=== PATIENT | male | born 1990 | race Caucasian/White ===

== ENCOUNTER 2019-02-11 21:28 | Inpatient (IN) | payer MEDICAID ==
[~2019-02-11] VITALS: Ht 182.9 cm; Wt 71.7 kg
[2019-02-11 22:05] VITALS: BP 148/98
--- NOTE | 2019-02-11 22:05 | NUR ---
ED Nurse Note: Patient walked in to ER c/o severe abdominal pain, N/V/D. Per patient he was not able to eat anything since Sunday. AAO x4, VSS at this time, skin is dry, warm to touch.
--- NOTE | 2019-02-11 22:08 | Emergency Room Report ---
History of Present Illness General Chief Complaint: Abdominal Pain Source: Patient Present Illness HPI This is a 28-year-old male with history of pancreatitis. This is secondary to alcohol abuse. He still drinks at least one drink tonight. He presents with chief complaint of upper quadrant pain. Onset this morning. He said his felt like his pancreatitis. It comes in waves. At most severe it's 8 out of 10. Now 5 out of 10. Nauseous but no vomiting. No diarrhea. Denies any fever or chills. Nothing made it better. Nothing made it worse. Allergies: Coded Allergies: No Known Allergies (Unverified , 02/11/19) Patient History Past Medical History: see triage record, old chart reviewed Past Surgical History: none Pertinent Family History: none Social History: Reports: alcohol use Immunizations: other Reviewed Nursing Documentation: PMH: Agreed; PSxH: Agreed Nursing Documentation-PMH Past Medical History: No History, Except For Hx Hypertension: Yes Hx Gastrointestinal Problems: Yes - pancreatitis Review of Systems Eye: Denies: eye pain, blurred vision ENT: Denies: ear pain, nose congestion, throat swelling Respiratory: Denies: cough, shortness of breath Cardiovascular: Denies: chest pain, palpitations Gastrointestinal: Reports: abdominal pain; Denies: diarrhea, nausea, vomiting Musculoskeletal: Denies: back pain, joint pain Skin: Denies: rash Neurological: Denies: headache, numbness Endocrine: Denies: increased thirst, increased urine Hematologic/Lymphatic: Denies: easy bruising All Other Systems: negative except mentioned in HPI Physical Exam Vital Signs Date Time Temp Pulse Resp B/P (MAP) Pulse Ox O2 Delivery O2 Flow Rate FiO2 02/11/19 21:46 97.5 98 16 148/98 99 Room Air vitals with high blood pressure Sp02 EP Interpretation: reviewed, normal General Appearance: well appearing, no apparent distress, alert Head: normocephalic, atraumatic Eyes: bilateral eye PERRL, bilateral eye EOMI ENT: hearing grossly normal, normal pharynx Neck: full range of motion, supple, no meningismus Respiratory: chest non-tender, lungs clear, normal breath sounds Cardiovascular #1: regular rate, rhythm, no murmur Gastrointestinal: normal bowel sounds, no mass, no organomegaly, no bruit, non- distended, tenderness - epigastric and left upper quadrant tenderness Musculoskeletal: back normal, gait/station normal, normal range of motion Psychiatric: mood/affect normal Skin: warm/dry Medical Decision Making Diagnostic Impression: Primary Impression: Pancreatitis, alcoholic, acute Qualified Codes: K85.20 - Alcohol induced acute pancreatitis without necrosis or infection Additional Impressions: Hypokalemia UTI (urinary tract infection) Qualified Codes: N30.00 - Acute cystitis without hematuria Alcohol abuse ER Course Patient presents with acute pancreatitis. This is probably secondary to alcohol abuse. His vitals otherwise stable. Pain is better controlled. Will admit for IV fluids and pain control. I discussed the case with Dr. Velázquez who will admit. Lab Results Impression labs with elevated lipase Last Vital Signs Date Time Temp Pulse Resp B/P (MAP) Pulse Ox O2 Delivery O2 Flow Rate FiO2 02/11/19 21:46 97.5 98 16 148/98 99 Room Air Status: improved Disposition: ADMITTED INPATIENT Condition: Serious Scripts No Active Prescriptions or Reported Meds Frank Lopez MD Feb 11, 2019 22:08
[2019-02-11] MEDS ORDERED: Morphine Sulfate 4mg/ml Inj (IV USE ONLY) IVP ONE (22:15)
[2019-02-11 22:26] LABS: HEMATOCRIT 44.4 % (42.0-52.0); HEMOGLOBIN 15.2 G/DL (14.2-18.0); MEAN CORPUSCULAR VOLUME 97 FL (80-99); PLATELET COUNT 251 K/UL (150-450); RED BLOOD COUNT 4.56 M/UL (4.70-6.10); RED CELL DISTRIBUTION WIDTH 11.9 % (11.6-14.8); WHITE BLOOD COUNT 15.4 K/UL (4.8-10.8)
[2019-02-11 22:27] LABS: BASOPHILS % (AUTO) 1.1 % (0.0-2.0); EOSINOPHILS % (AUTO) 0.5 % (0.0-3.0); MONOCYTES % (AUTO) 4.2 % (1.0-10.0); NEUTROPHILS % (AUTO) 85.2 % (45.0-75.0)
[2019-02-11 22:35] LABS: ANION GAP 5 mmol/L (5-15); BLOOD UREA NITROGEN 17 mg/dL (7-18); CALCIUM 12.9 MG/DL (8.5-10.1); CARBON DIOXIDE 37 MMOL/L (21-32); CHLORIDE 99 MMOL/L (98-107); CREATININE 1.4 MG/DL (0.55-1.30); POTASSIUM 3.1 MMOL/L (3.5-5.1); SODIUM 141 MMOL/L (136-145)
[2019-02-11 22:41] LABS: ALANINE AMINOTRANSFERASE 29 U/L (12-78); ALBUMIN 3.7 G/DL (3.4-5.0); ALBUMIN/GLOBULIN RATIO 1.1 (1.0-2.7); ALKALINE PHOSPHATASE 75 U/L (46-116); ASPARTATE AMINO TRANSFERASE 21 U/L (15-37); BILIRUBIN,TOTAL 0.6 MG/DL (0.2-1.0)
[2019-02-11 23:04] LABS: APPEARANCE,URINE CLEAR; BILIRUBIN, URINE NEGATIVE (NEGATIVE); COLOR,URINE PALE YELLOW; GLUCOSE, URINE (UA) NEGATIVE (NEGATIVE); KETONES,URINE NEGATIVE (NEGATIVE); LEUKOCYTE ESTERASE ,URINE 2+ (NEGATIVE); NITRITE,URINE NEGATIVE (NEGATIVE); PH,URINE 8 (4.5-8.0); PROTEIN,URINE 1+ (NEGATIVE); UROBILINOGEN,URINE NORMAL MG/DL (0.0-1.0)
[2019-02-11] MEDS ORDERED: HYDROmorphone 1mg/ml Carpuject IVP ONE (23:30)
[2019-02-11] MEDS ORDERED: cefTRIAXone 1 GM in NS 55 ML IVPB ONE (23:30)
[2019-02-11] MEDS ORDERED: Morphine Sulfate 4mg/ml Inj (IV USE ONLY) IVP PRN (23:45)
[2019-02-12] MEDS ORDERED: Acetaminophen 500mg (ES) tab ORAL PRN (00:30)
[2019-02-12 00:45] VITALS: BP 153/111
[2019-02-12] MEDS: Morphine Sulfate 2mg/ml Inj(IV/IM USE ONLY) IVP PRN ×8 (02:05→23:58)
--- NOTE | 2019-02-12 02:36 | NUR ---
ED Nurse Note: Patient was admited to [facility] due to pancreastitis. AAO x4, VSS at this time. All belongings were given to the patient. Patient was transfered by ACLS protocol.
[2019-02-12 03:55] VITALS: BP 160/116
[2019-02-12 07:07] LABS: BASOPHILS % (AUTO) 0.5 % (0.0-2.0); EOSINOPHILS % (AUTO) 1.7 % (0.0-3.0); HEMATOCRIT 43.6 % (42.0-52.0); HEMOGLOBIN 15.1 G/DL (14.2-18.0); MEAN CORPUSCULAR VOLUME 99 FL (80-99); MONOCYTES % (AUTO) 8.2 % (1.0-10.0); NEUTROPHILS % (AUTO) 80.7 % (45.0-75.0); PLATELET COUNT 238 K/UL (150-450); RED BLOOD COUNT 4.39 M/UL (4.70-6.10); RED CELL DISTRIBUTION WIDTH 12.3 % (11.6-14.8); WHITE BLOOD COUNT 14.5 K/UL (4.8-10.8)
--- NOTE | 2019-02-12 07:13 | NUR ---
HAND-OFF: Report given to Graham Shetty RN.
--- NOTE | 2019-02-12 07:15 | NUR ---
NURSE NOTES: Received patient in bed, awake, alert and oriented x4. Not in respiratory/cardiac distress noted. Patient stated that he vomited x1, no blood.Complains of mild abdominal pain. Will continue to monitor for pain. IV intact, no s/s of infiltration. Bed is on lowest position and locked. Call light within reach. On NPO except ice chips and meds. Will continue plan of care.
[2019-02-12 07:38] LABS: ALANINE AMINOTRANSFERASE 26 U/L (12-78); ALBUMIN 3.2 G/DL (3.4-5.0); ALKALINE PHOSPHATASE 68 U/L (46-116); ANION GAP 7 mmol/L (5-15); ASPARTATE AMINO TRANSFERASE 20 U/L (15-37); BILIRUBIN,TOTAL 0.7 MG/DL (0.2-1.0); BLOOD UREA NITROGEN 17 mg/dL (7-18); CARBON DIOXIDE 34 MMOL/L (21-32); CHLORIDE 101 MMOL/L (98-107); CREATININE 1.3 MG/DL (0.55-1.30); POTASSIUM 3.2 MMOL/L (3.5-5.1); SODIUM 142 MMOL/L (136-145)
[2019-02-12 07:58] LABS: PHOSPHORUS 3.6 MG/DL (2.5-4.9)
[2019-02-12 08:00] VITALS: BP 156/113
[2019-02-12 08:09] LABS: CHOLESTEROL 145 MG/DL (< 200); HDL CHOLESTEROL 72 MG/DL (40-60); TRIGLYCERIDES 102 MG/DL (30-150)
--- NOTE | 2019-02-12 10:25 | GI Initial Consult Note ---
History of Present Illness General Date patient seen: Feb 12, 2019 Time patient seen: 10:20 Reason for Hospitalization: Abdominal Pain Referring physician: SHARDA STEPHENSON Reason for Consultation: Alcoholic pancreatitis Present Illness HPI This is a 28-year-old male with history of pancreatitis. This is secondary to alcohol abuse. He still drinks at least one drink tonight. He presents with chief complaint of upper quadrant pain. Onset this morning. He said his felt like his pancreatitis. It comes in waves. At most severe it's 8 out of 10. Now 5 out of 10. Nauseous but no vomiting. No diarrhea. Denies any fever or chills. Nothing made it better. Nothing made it worse. GI consulted for alcohol. Patient seen, awake alert and oriented x4 no apparent distress with no active signs or symptoms of vomiting. She has complaint of abdominal pain and nausea. According to the patient, he drinks alcohol on a daily basis. His most recent binge he stated he had too many drinks. The patient does admit to drinking on a daily basis. He also states he has a history of alcoholic pancreatitis where he has been hospitalized at least 3 times prior for the same reason. Patient presents today with elevated lipase levels over 1999. No transaminitis noted. Triglyceride levels normal. No history of endoscopic or colonoscopy. Home Meds No Active Prescriptions or Reported Meds Med list reviewed/reconciled: Yes Allergies: Coded Allergies: No Known Allergies (Unverified , 02/11/19) Patient History History Provided By: Patient, Medical Record PMH Narrative Past Medical History: see triage record, old chart reviewed Past Surgical History: none Pertinent Family History: none Social History: Reports: alcohol use Immunizations: other Reviewed Nursing Documentation: PMH: Agreed; PSxH: Agreed Nursing Documentation-PM Past Medical History: No History, Except For Hx Hypertension: Yes Hx Gastrointestinal Problems: Yes - pancreatitis Social History: Reports: alcohol use Review of Systems All Other Systems: negative except mentioned in HPI Physical Exam Vital Signs Date Time Temp Pulse Resp B/P (MAP) Pulse Ox O2 Delivery O2 Flow Rate FiO2 02/11/19 21:46 97.5 98 16 148/98 99 Room Air Sp02 EP Interpretation: reviewed, normal Labs Laboratory Tests Test 02/11/19 22:15 02/11/19 22:30 02/12/19 06:32 White Blood Count 15.4 K/UL (4.8-10.8) H 14.5 K/UL (4.8-10.8) H Red Blood Count 4.56 M/UL (4.70-6.10) L 4.39 M/UL (4.70-6.10) L Hemoglobin 15.2 G/DL (14.2-18.0) 15.1 G/DL (14.2-18.0) Hematocrit 44.4 % (42.0-52.0) 43.6 % (42.0-52.0) Mean Corpuscular Volume 97 FL (80-99) 99 FL (80-99) Mean Corpuscular Hemoglobin 33.4 PG (27.0-31.0) H 34.4 PG (27.0-31.0) H Mean Corpuscular Hemoglobin Concent 34.3 G/DL (32.0-36.0) 34.6 G/DL (32.0-36.0) Red Cell Distribution Width 11.9 % (11.6-14.8) 12.3 % (11.6-14.8) Platelet Count 251 K/UL (150-450) 238 K/UL (150-450) Mean Platelet Volume 5.8 FL (6.5-10.1) L 7.0 FL (6.5-10.1) Neutrophils (%) (Auto) 85.2 % (45.0-75.0) H 80.7 % (45.0-75.0) H Lymphocytes (%) (Auto) 9.0 % (20.0-45.0) L 9.0 % (20.0-45.0) L Monocytes (%) (Auto) 4.2 % (1.0-10.0) 8.2 % (1.0-10.0) Eosinophils (%) (Auto) 0.5 % (0.0-3.0) 1.7 % (0.0-3.0) Basophils (%) (Auto) 1.1 % (0.0-2.0) 0.5 % (0.0-2.0) Sodium Level 141 MMOL/L (136-145) 142 MMOL/L (136-145) Potassium Level 3.1 MMOL/L (3.5-5.1) L 3.2 MMOL/L (3.5-5.1) L Chloride Level 99 MMOL/L (98-107) 101 MMOL/L (98-107) Carbon Dioxide Level 37 MMOL/L (21-32) H 34 MMOL/L (21-32) H Anion Gap 5 mmol/L (5-15) 7 mmol/L (5-15) Blood Urea Nitrogen 17 mg/dL (7-18) 17 mg/dL (7-18) Creatinine 1.4 MG/DL (0.55-1.30) H 1.3 MG/DL (0.55-1.30) Estimat Glomerular Filtration Rate 59.5 mL/min (>60) > 60 mL/min (>60) Glucose Level 102 MG/DL (74-106) 94 MG/DL (74-106) Calcium Level 12.9 MG/DL (8.5-10.1) H 11.0 MG/DL (8.5-10.1) H Total Bilirubin 0.6 MG/DL (0.2-1.0) 0.7 MG/DL (0.2-1.0) Aspartate Amino Transf (AST/SGOT) 21 U/L (15-37) 20 U/L (15-37) Alanine Aminotransferase (ALT/SGPT) 29 U/L (12-78) 26 U/L (12-78) Alkaline Phosphatase 75 U/L (46-116) 68 U/L (46-116) Total Protein 7.2 G/DL (6.4-8.2) 6.4 G/DL (6.4-8.2) Albumin 3.7 G/DL (3.4-5.0) 3.2 G/DL (3.4-5.0) L Globulin 3.5 g/dL 3.2 g/dL Albumin/Globulin Ratio 1.1 (1.0-2.7) 1.0 (1.0-2.7) Lipase > 2000 U/L (73-393) H > 2000 U/L (73-393) H Urine Color Pale yellow Urine Appearance Clear Urine pH 8 (4.5-8.0) Urine Specific [place] 1.010 (1.005-1.035) Urine Protein 1+ (NEGATIVE) H Urine Glucose (UA) Negative (NEGATIVE) Urine Ketones Negative (NEGATIVE) Urine Blood Negative (NEGATIVE) Urine Nitrite Negative (NEGATIVE) Urine Bilirubin Negative (NEGATIVE) Urine Urobilinogen Normal MG/DL (0.0-1.0) Urine Leukocyte Esterase 2+ (NEGATIVE) H Urine RBC 2-4 /HPF (0 - 0) H Urine WBC 10-15 /HPF (0 - 0) H Urine Squamous Epithelial Cells Occasional /LPF Urine Bacteria Few /HPF (NONE) Uric Acid 7.9 MG/DL (2.6-7.2) H Phosphorus Level 3.6 MG/DL (2.5-4.9) Magnesium Level 1.2 MG/DL (1.8-2.4) L Triglycerides Level 102 MG/DL (30-150) Cholesterol Level 145 MG/DL (< 200) LDL Cholesterol 53 mg/dL (<100) HDL Cholesterol 72 MG/DL (40-60) H Cholesterol/HDL Ratio 2.0 (3.3-4.4) L Thyroid Stimulating Hormone (TSH) 1.437 uiU/mL (0.358-3.740) General Appearance: well appearing, no apparent distress, alert Head: normocephalic EENT: PERRL/EOMI, normal ENT inspection Neck: supple Respiratory: normal breath sounds, no respiratory distress Cardiovascular: normal rate Gastrointestinal: normal inspection, non tender, soft, normal bowel sounds, non -distended Rectal: deferred Genitourinary: deferred Musculoskeletal: normal inspection, back normal Neurologic: normal inspection, alert, oriented x3, responsive Psychiatric: normal inspection, judgement/insight normal, memory normal Skin: normal inspection, normal color, no rash, warm/dry, palpation normal, well hydrated Lymphatic: normal inspection, no adenopathy Current Medications Current Medications Medications (Trade) Dose Ordered Sig/Anurag Route PRN Reason Start Time Stop Time Status Last Admin Dose Admin Acetaminophen (Tylenol) 500 mg Q6HR PRN ORAL Mild Pain/Temp > 100.5 02/12/19 00:30 03/14/19 00:29 Clonidine HCl (Catapres Tab) 0.1 mg Q6H PRN ORAL For High Blood Pressure 02/12/19 06:45 03/14/19 06:44 Morphine Sulfate (Morphine Sulfate) 2 mg Q2HR PRN IVP For Pain 4-10 02/12/19 00:30 02/19/19 00:29 02/12/19 07:52 Ondansetron HCl (Zofran) 4 mg Q6H PRN IVP Nausea & Vomiting 02/12/19 00:30 03/14/19 00:29 02/12/19 04:20 Sodium Chloride 1,000 ml @ 75 mls/hr [id number] IV 02/12/19 00:30 03/14/19 00:29 02/12/19 01:19 GI: Plan Problems: (1) Alcohol abuse (2) Pancreatitis, alcoholic, acute Plan Triglyceride level of within normal limits Maintain the patient n.p.o. plus IV fluids ice chips and sips of water okay, advance diet as tolerated Pain management Zofran as needed H2B Obtain urine toxicity Repeat lipase levels Patient instructed to avoid alcohol Discussed with Dr. Clark. Thank you for this patient referral, we will follow. The patient was seen and examined at bedside and all new and available data was reviewed in the patients chart. I agree with the above findings, impression and plan. (Patient seen earlier today. Signature stamp does not reflect patient encounter time.). - MD Jessica [facility] TOOL ENGINE LATHE SET UP OPERATOR Feb 12, 2019 10:25
[2019-02-12 12:00] VITALS: BP 164/113
--- NOTE | 2019-02-12 12:25 | NUR ---
NURSE NOTES: Collected urine specimen and sent it to lab for drug screen.
[2019-02-12] MEDS: Thiamine HCl 100 MG in D5W 55 ML IVPB SCH (13:09)
[2019-02-12] MEDS: D5 1/2NS w/KCl 40meq 1000ml 1,000 ML IV SCH (13:11)
--- NOTE | 2019-02-12 13:46 | Consultation ---
Consult Note Consult Note asked to eval at the request of Dr coleman for fluid management This is a 28-year-old male with history of pancreatitis. This is secondary to alcohol abuse. He still drinks at least one drink tonight. He presents with chief complaint of upper quadrant pain. Onset this morning. He said his felt like his pancreatitis. It comes in waves. At most severe it's 8 out of 10. Now 5 out of 10. Nauseous but no vomiting. No diarrhea. Denies any fever or chills. Nothing made it better. Nothing made it worse. No Known Allergies (Unverified , 02/11/19) Social History: Reports: alcohol use Hx Hypertension: Yes Hx Gastrointestinal Problems: Yes - pancreatitis interviewed examined data reviewed . Assessment/Plan Hypokalemia HTN OOC Pancreatitis, alcoholic, acute UTI (urinary tract infection) Alcohol abuse NPO BP control Hydrate minitor lipase and lytes per orders Javi Lyles MD Feb 12, 2019 13:46
[2019-02-12] MEDS ORDERED: chlordiazePOXIDE 25mg Cap ORAL PRN (14:00)
[2019-02-12] MEDS ORDERED: chlordiazePOXIDE 25mg Cap ORAL SCH (14:00)
[2019-02-12] MEDS ORDERED: Minoxidil 2.5mg tab ORAL PRN (14:00)
--- NOTE | 2019-02-12 14:03 | NUR ---
*-* INSURANCE *-* CLINICALS HAVE BEEN FAXED TO: [facility] NO WORSTED WINDER ASSIGNED AT THIS TIME. PLEASE FAX THE REVIEW/CLINICAL P- [phone] F- [phone]...REVIEW/CLINICAL
[2019-02-12 16:00] VITALS: BP 157/116
--- NOTE | 2019-02-12 16:22 | NUR ---
NURSE NOTES: Administered 4 bags of magnesium.
[2019-02-12] MEDS ORDERED: Tubing IV Secondary IV ONE (17:23)
--- NOTE | 2019-02-12 19:30 | NUR ---
NURSE NOTES: Patient in bed, alert and oriented x4, not in respiratory distress. With IV access on the right hand. Instructed the use of call light. Call light and needs in reach. Bed in lowest position and lock engaged. Will continue to monitor.
--- NOTE | 2019-02-12 19:38 | NUR ---
HAND-OFF: Report given to
--- NOTE | 2019-02-12 19:47 | NUR ---
CASE MANAGEMENT: REVIEW PRESENTED TO ED FROM HOME CC: N/V . UPPER ABD PAIN . HX PANCREATITIS SECONDARY TO ALCOHOL ABUSE SI: ACUTE ALCOHOLIC PANCREATITIS . UTI T 97.0 HR 78 RR 16 BP 157/116 SAT 97% ROOM AIR WBC 14.5 K 3.1 LIPASE >2000 IS: NS IVF BOLUS X1 MORPHINE IV X1 ZOFRAN IV X1 CEFTRIAXONE IV X1 DILAUDID IV X1 NPO PATIENT ADMITTED TO MED/SURG UNIT 02/12/2019 DCP: PATIENT IS FROM HOME
[2019-02-12 20:00] VITALS: BP 145/105
[2019-02-12] MEDS: Pantoprazole Inj IVP SCH (21:00)
--- NOTE | 2019-02-12 21:45 | Consultation ---
DATE OF CONSULTATION: 02/12/2019 INFECTIOUS DISEASE CONSULTATION CONSULTING PHYSICIAN: Santhosh Strickland M.D. PRIMARY ATTENDING PHYSICIAN: Natalie Velázquez M.D. REASON FOR CONSULT: Pancreatitis. HISTORY OF PRESENT ILLNESS: This is a 28-year-old white male admitted last night complaining of upper quadrant abdominal pain started on the day of admission, 05/31. The patient had a history of pancreatitis before in October of 2018. He was admitted in the hospital in [place]. The patient also has some pyuria. PAST MEDICAL HISTORY: Significant for hypertension and pancreatitis. MEDICATIONS: Folic acid, amlodipine, lisinopril, Protonix, Librium, clonidine, minoxidil, thiamine, morphine sulfate, acetaminophen, and Zofran. He also get a dose of ceftriaxone in the ER. ALLERGIES: No known drug allergy. SOCIAL HISTORY: Single. Current smoker up to 20 cigarettes a day. Drinks alcohol every night. REVIEW OF SYSTEMS: No fever. No chills. No coughing. No diarrhea. No bowel movements since yesterday. No problem passing urine. PHYSICAL EXAMINATION: VITAL SIGNS: Temperature 97, pulse 67, and blood pressure 163/108. GENERAL APPEARANCE: Seems to be well developed. HEAD AND NECK: Jaars conjunctivae. No oral lesions. HEART: S1 and S2 regular. LUNGS: Clear. ABDOMEN: Soft. Have upper quadrant tenderness. Flat. EXTREMITIES: He has no edema. LABORATORY AND DIAGNOSTIC DATA: Sodium 142, potassium 3.2, chloride 101, bicarb 34, BUN 17, and creatinine 1.3. Total bilirubin 0.7. AST and ALT are normal. His lipase is more than 2000. HDL cholesterol is high at 72. Urine toxicology was positive for opiates and THC. IMPRESSION: Acute pancreatitis, likely alcoholic. The patient has hypertension and nicotine dependence. RECOMMENDATION: 1. Observe off antibiotic. 2. Continue hydration and treatment of hypertension as suggested by GI specialists and coil placer in follow up. At the end of my exam, I thank Dr. Velázquez for involving me in the care of this patient. Santhosh Strickland M.D. DR: NADJA JOB#: [id number] CC:
[2019-02-13] VITALS: BP 136/95
[2019-02-13] MEDS: D5 1/2NS w/KCl 40meq 1000ml 1,000 ML IV SCH ×2 (02:55→14:40)
[2019-02-13] MEDS: Morphine Sulfate 2mg/ml Inj(IV/IM USE ONLY) IVP PRN ×6 (02:56→20:14)
--- NOTE | 2019-02-13 04:30 | History and Physical Report ---
DATE OF ADMISSION: 02/11/2019 HISTORY OF PRESENT ILLNESS: The patient comes here with alcoholic pancreatitis, leukocytosis, and elevated lipase. The patient is kept NPO. The patient has been having . He has a history of alcoholic pancreatitis. Denies nausea, vomiting, or diarrhea. No shortness of breath or cough. No fever or chills. PAST MEDICAL HISTORY: 1. History of alcohol-related pancreatitis. 2. GERD. PAST SURGICAL HISTORY: Throat surgery. SOCIAL HISTORY: History of smoking, history of drug abuse, history of alcohol abuse. ALLERGIES: No known allergies. MEDICATIONS: Noncontributory. REVIEW OF SYSTEMS: HEENT: Denies headaches. RESPIRATORY: Denies shortness of breath. Denies cough. CARDIOVASCULAR: Denies chest pain. No orthopnea. GASTROINTESTINAL: Reports abdominal pain, nausea, and vomiting for one day. No constipation. No hematemesis. EXTREMITIES: . CENTRAL NERVOUS SYSTEM: No change in vision or speech pattern. PHYSICAL EXAMINATION: VITAL SIGNS: Temperature 97, pulse 67, blood pressure 164/113. HEENT: PERRLA. NECK: Supple. No lymphadenopathy. CHEST: Clear to auscultation. CARDIOVASCULAR: Regular rate and rhythm. No murmurs or extra sounds. ABDOMEN: Epigastric tenderness. No rebound. No organomegaly. Positive bowel sounds. Abdomen is soft. EXTREMITIES: No edema. Moves all four extremities. LABORATORY DATA: WBC of 15.4, hemoglobin 15, and platelets of 251,000. Sodium 141, potassium 3.1, BUN of 17, creatinine 1.4, lipase of greater than 2000. ASSESSMENT AND PLAN: Alcoholic pancreatitis acute. Today the patient is NPO. Intravenous fluids to help with treating the pancreatitis. Dr. Clark has also been consulted as well as Dr. Santhosh Strickland to rule out any infectious etiology and Dr. Lyles for dehydration. Dr. Lyles has also been consulted for severe hypercalcemia. Natalie Velázquez M.D. DR: NAOMIE JOB#: [id number] CC:
[2019-02-13 05:56] VITALS: BP 129/93
--- NOTE | 2019-02-13 07:23 | NUR ---
HAND-OFF: Report given to GALLITO Parekh.
[2019-02-13 07:26] LABS: BASOPHILS % (AUTO) 0.7 % (0.0-2.0); HEMATOCRIT 39.2 % (42.0-52.0); HEMOGLOBIN 13.6 G/DL (14.2-18.0); LYMPHOCYTES % (AUTO) 15.3 % (20.0-45.0); MEAN CORPUSCULAR VOLUME 99 FL (80-99); MONOCYTES % (AUTO) 10.5 % (1.0-10.0); NEUTROPHILS % (AUTO) 67.5 % (45.0-75.0); PLATELET COUNT 221 K/UL (150-450); RED BLOOD COUNT 3.97 M/UL (4.70-6.10); RED CELL DISTRIBUTION WIDTH 12.2 % (11.6-14.8); WHITE BLOOD COUNT 10.6 K/UL (4.8-10.8)
[2019-02-13 07:39] LABS: ALANINE AMINOTRANSFERASE 23 U/L (12-78); ALBUMIN 2.9 G/DL (3.4-5.0); ALBUMIN/GLOBULIN RATIO 0.9 (1.0-2.7); ALKALINE PHOSPHATASE 58 U/L (46-116); ANION GAP 6 mmol/L (5-15); ASPARTATE AMINO TRANSFERASE 18 U/L (15-37); BILIRUBIN,TOTAL 0.5 MG/DL (0.2-1.0); BLOOD UREA NITROGEN 11 mg/dL (7-18); CALCIUM 9.5 MG/DL (8.5-10.1); CARBON DIOXIDE 31 MMOL/L (21-32); CHLORIDE 101 MMOL/L (98-107); POTASSIUM 3.1 MMOL/L (3.5-5.1); SODIUM 138 MMOL/L (136-145)
[2019-02-13 08:23] LABS: CREATINE KINASE 35 U/L (26-308); GAMMA GLUTAMYL TRANSPEPTIDASE 47 U/L (5-85); PHOSPHORUS 2.6 MG/DL (2.5-4.9)
[2019-02-13 08:30] VITALS: BP 132/89
[2019-02-13] MEDS: Pantoprazole Inj IVP SCH ×2 (08:35→21:54)
[2019-02-13] MEDS: Lisinopril 20mg tab ORAL SCH (08:36)
--- NOTE | 2019-02-13 08:45 | NUR ---
NURSE NOTES: patient is awake and alert,respirations are unlablred,IV fluids infusing as ordered,patient state pain not too bad ,but requesting pain mediication,will give as ordered.Call light within reach.
--- NOTE | 2019-02-13 09:49 | NUR ---
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 UTI VS: BP 129/93, P 71, T 97.0, RR 19, SpO2 98 RBC 3.97, Hgb 13.6, Hct 39.2, K 3.1 IS:NORVASC 10mg LISINOPRIL 20mg PROTONIX 40mg IVP CLONIDINE HCI 0.1mg D5/ ELECTROLYTES x1L IV MORPHINE SULFATE 2mg IVP ZOFRAN 4mg IVP MED/SURG STATUS
--- NOTE | 2019-02-13 10:21 | NUR ---
*-* INSURANCE *-* CLINICALS AND REVIEWS HAVE BEEN FAXED TO: [facility] NO DJ INSTRUCTOR ASSIGNED AT THIS TIME. PLEASE FAX THE REVIEW/CLINICAL P- [phone] F- [phone]...REVIEW/CLINICAL
--- NOTE | 2019-02-13 10:46 | GI Progress Note ---
Assessment/Plan Problems: (1) Pancreatitis, alcoholic, acute ICD Codes: K85.20 - Alcohol induced acute pancreatitis without necrosis or infection SNOMED: 277578458 Qualifiers: Qualified Codes: K85.20 - Alcohol induced acute pancreatitis without necrosis or infection (2) Alcohol abuse ICD Codes: F10.10 - Alcohol abuse, uncomplicated SNOMED: 78879355 Status: unchanged Status Narrative Discussed with Dr. Clark Assessment/Plan Triglyceride level of within normal limits Urine toxicity positive for marijuana Clear liquid diet trial Pain management Zofran as needed H2B Repeat lipase levels Patient instructed to avoid alcohol The patient was seen and examined at bedside and all new and available data was reviewed in the patients chart. I agree with the above findings, impression and plan. (Patient seen earlier today. Signature stamp does not reflect patient encounter time.). - Nakul Clark MD Subjective Subjective Patient is complaining of abdominal pain. Patient wishes to have a trial of clear liquid diet Objective Last 24 Hour Vital Signs Date Time Temp Pulse Resp B/P (MAP) Pulse Ox O2 Delivery O2 Flow Rate FiO2 02/13/19 08:36 132/89 02/13/19 08:35 71 132/89 02/13/19 08:30 98.0 71 18 132/89 (103) 98 02/13/19 06:00 129/93 02/13/19 05:56 97.0 62 19 129/93 (105) 98 02/13/19 00:00 98.1 74 18 136/95 (109) 97 02/12/19 22:47 136/95 02/12/19 21:00 Room Air 02/12/19 20:00 98.1 72 18 145/105 (118) 98 02/12/19 16:00 97.0 78 16 157/116 (130) 97 02/12/19 15:22 157/116 02/12/19 15:21 78 157/116 02/12/19 13:12 160/108 02/12/19 12:00 97.0 67 17 164/113 (130) 97 Intake and Output 02/12/19 02/13/19 19:00 07:00 Intake Total 831 ml 790 ml Balance 831 ml 790 ml IV Total 831 ml 790 ml # Voids 2 Laboratory Tests Test 02/12/19 12:00 02/13/19 06:23 Urine Opiates Screen Positive (NEGATIVE) H Urine Barbiturates Screen Negative (NEGATIVE) Phencyclidine (PCP) Screen Negative (NEGATIVE) Urine Amphetamines Screen Negative (NEGATIVE) Urine Benzodiazepines Screen Negative (NEGATIVE) Urine Cocaine Screen Negative (NEGATIVE) Urine Marijuana (THC) Screen Positive (NEGATIVE) H White Blood Count 10.6 K/UL (4.8-10.8) Red Blood Count 3.97 M/UL (4.70-6.10) L Hemoglobin 13.6 G/DL (14.2-18.0) L Hematocrit 39.2 % (42.0-52.0) L Mean Corpuscular Volume 99 FL (80-99) Mean Corpuscular Hemoglobin 34.3 PG (27.0-31.0) H Mean Corpuscular Hemoglobin Concent 34.7 G/DL (32.0-36.0) Red Cell Distribution Width 12.2 % (11.6-14.8) Platelet Count 221 K/UL (150-450) Mean Platelet Volume 7.2 FL (6.5-10.1) Neutrophils (%) (Auto) 67.5 % (45.0-75.0) Lymphocytes (%) (Auto) 15.3 % (20.0-45.0) L Monocytes (%) (Auto) 10.5 % (1.0-10.0) H Eosinophils (%) (Auto) 6.0 % (0.0-3.0) H Basophils (%) (Auto) 0.7 % (0.0-2.0) Sodium Level 138 MMOL/L (136-145) Potassium Level 3.1 MMOL/L (3.5-5.1) L Chloride Level 101 MMOL/L (98-107) Carbon Dioxide Level 31 MMOL/L (21-32) Anion Gap 6 mmol/L (5-15) Blood Urea Nitrogen 11 mg/dL (7-18) Creatinine 1.0 MG/DL (0.55-1.30) Estimat Glomerular Filtration Rate > 60 mL/min (>60) Glucose Level 90 MG/DL (74-106) Hemoglobin A1c 5.2 % (4.3-6.0) Uric Acid 7.2 MG/DL (2.6-7.2) Calcium Level 9.5 MG/DL (8.5-10.1) Phosphorus Level 2.6 MG/DL (2.5-4.9) Magnesium Level 1.8 MG/DL (1.8-2.4) Total Bilirubin 0.5 MG/DL (0.2-1.0) Gamma Glutamyl Transpeptidase 47 U/L (5-85) Aspartate Amino Transf (AST/SGOT) 18 U/L (15-37) Alanine Aminotransferase (ALT/SGPT) 23 U/L (12-78) Alkaline Phosphatase 58 U/L (46-116) Total Creatine Kinase 35 U/L (26-308) C-Reactive Protein, Quantitative 8.9 mg/dL (0.00-0.90) H Pro-B-Type Natriuretic Peptide 574 pg/mL (0-125) H Total Protein 6.0 G/DL (6.4-8.2) L Albumin 2.9 G/DL (3.4-5.0) L Globulin 3.1 g/dL Albumin/Globulin Ratio 0.9 (1.0-2.7) L Lipase > 2000 U/L (73-393) H Vitamin B12 Level 739 PG/ML (193-986) Folate 15.4 NG/ML (8.6-58.9) Height (Feet): 6 Height (Inches): 0.00 Weight (Pounds): 158 General Appearance: WD/WN, no apparent distress, alert Cardiovascular: normal rate Respiratory/Chest: normal breath sounds, no respiratory distress Abdominal Exam: normal bowel sounds, non tender, soft Extremities: normal range of motion, non-tender Jan Lopez NP Feb 13, 2019 10:46
--- NOTE | 2019-02-13 13:40 | Infectious Diseases Prog Note ---
Assessment/Plan Assessment/Plan IMPRESSION: Acute pancreatitis, likely alcoholic. hypertension nicotine dependence. RECOMMENDATION: 1. Observe off antibiotic. Subjective ROS Limited/Unobtainable: Yes Constitutional: Reports: anorexia Gastrointestinal/Abdominal: Reports: other - abdominal pain Allergies: Coded Allergies: No Known Allergies (Unverified , 02/11/19) Objective Vital Signs Last 24 Hour Vital Signs Date Time Temp Pulse Resp B/P (MAP) Pulse Ox O2 Delivery O2 Flow Rate FiO2 02/13/19 09:00 Room Air 02/13/19 08:36 132/89 02/13/19 08:35 71 132/89 02/13/19 08:30 98.0 71 18 132/89 (103) 98 02/13/19 06:00 129/93 02/13/19 05:56 97.0 62 19 129/93 (105) 98 02/13/19 00:00 98.1 74 18 136/95 (109) 97 02/12/19 22:47 136/95 02/12/19 21:00 Room Air 02/12/19 20:00 98.1 72 18 145/105 (118) 98 02/12/19 16:00 97.0 78 16 157/116 (130) 97 02/12/19 15:22 157/116 02/12/19 15:21 78 157/116 Height (Feet): 6 Height (Inches): 0.00 Weight (Pounds): 158 General Appearance: no acute distress HEENT: mucous membranes moist Respiratory/Chest: lungs clear Cardiovascular: normal rate Abdomen: other - soft, tender Extremities: no edema Neurologic/Psychiatric: other - sleeping Microbiology Date/Time Source Procedure Growth Status 02/11/19 22:30 Urine,Clean Catch Urine Culture - Preliminary NO GROWTH AFTER 24 HOURS Resulted Laboratory Tests Test 02/13/19 06:23 White Blood Count 10.6 K/UL (4.8-10.8) Red Blood Count 3.97 M/UL (4.70-6.10) L Hemoglobin 13.6 G/DL (14.2-18.0) L Hematocrit 39.2 % (42.0-52.0) L Mean Corpuscular Volume 99 FL (80-99) Mean Corpuscular Hemoglobin 34.3 PG (27.0-31.0) H Mean Corpuscular Hemoglobin Concent 34.7 G/DL (32.0-36.0) Red Cell Distribution Width 12.2 % (11.6-14.8) Platelet Count 221 K/UL (150-450) Mean Platelet Volume 7.2 FL (6.5-10.1) Neutrophils (%) (Auto) 67.5 % (45.0-75.0) Lymphocytes (%) (Auto) 15.3 % (20.0-45.0) L Monocytes (%) (Auto) 10.5 % (1.0-10.0) H Eosinophils (%) (Auto) 6.0 % (0.0-3.0) H Basophils (%) (Auto) 0.7 % (0.0-2.0) Sodium Level 138 MMOL/L (136-145) Potassium Level 3.1 MMOL/L (3.5-5.1) L Chloride Level 101 MMOL/L (98-107) Carbon Dioxide Level 31 MMOL/L (21-32) Anion Gap 6 mmol/L (5-15) Blood Urea Nitrogen 11 mg/dL (7-18) Creatinine 1.0 MG/DL (0.55-1.30) Estimat Glomerular Filtration Rate > 60 mL/min (>60) Glucose Level 90 MG/DL (74-106) Hemoglobin A1c 5.2 % (4.3-6.0) Uric Acid 7.2 MG/DL (2.6-7.2) Calcium Level 9.5 MG/DL (8.5-10.1) Phosphorus Level 2.6 MG/DL (2.5-4.9) Magnesium Level 1.8 MG/DL (1.8-2.4) Total Bilirubin 0.5 MG/DL (0.2-1.0) Gamma Glutamyl Transpeptidase 47 U/L (5-85) Aspartate Amino Transf (AST/SGOT) 18 U/L (15-37) Alanine Aminotransferase (ALT/SGPT) 23 U/L (12-78) Alkaline Phosphatase 58 U/L (46-116) Total Creatine Kinase 35 U/L (26-308) C-Reactive Protein, Quantitative 8.9 mg/dL (0.00-0.90) H Pro-B-Type Natriuretic Peptide 574 pg/mL (0-125) H Total Protein 6.0 G/DL (6.4-8.2) L Albumin 2.9 G/DL (3.4-5.0) L Globulin 3.1 g/dL Albumin/Globulin Ratio 0.9 (1.0-2.7) L Lipase > 2000 U/L (73-393) H Vitamin B12 Level 739 PG/ML (193-986) Folate 15.4 NG/ML (8.6-58.9) Current Medications Medications (Trade) Dose Ordered Sig/Anurag Route PRN Reason Start Time Stop Time Status Last Admin Dose Admin Acetaminophen (Tylenol) 500 mg Q6HR PRN ORAL Mild Pain/Temp > 100.5 02/12/19 00:30 03/14/19 00:29 Amlodipine Besylate (Norvasc) 10 mg DAILY ORAL 02/13/19 09:00 03/15/19 08:59 02/13/19 08:35 Chlordiazepoxide (Librium) 25 mg Q6H PRN ORAL Agitation 02/12/19 14:00 02/19/19 13:59 Clonidine HCl (Catapres Tab) 0.1 mg EVERY 8 HOURS ORAL 02/12/19 14:00 03/14/19 11:59 02/12/19 22:47 Dextrose/ Electrolytes 1,000 ml @ 75 mls/hr [id number] IV 02/12/19 12:00 03/14/19 11:59 02/13/19 02:55 Folic Acid (Folate) 1 mg DAILY ORAL 02/13/19 09:00 03/15/19 08:59 02/13/19 08:35 Lisinopril (Prinivil) 20 mg DAILY ORAL 02/13/19 09:00 03/15/19 08:59 02/13/19 08:36 Minoxidil (Loniten) 2.5 mg Q4H PRN ORAL bp over 160 syst 02/12/19 14:00 03/14/19 13:59 Morphine Sulfate (Morphine Sulfate) 2 mg Q2HR PRN IVP For Pain 4-02/12/19 00:30 02/19/19 00:29 02/13/19 12:30 Ondansetron HCl (Zofran) 4 mg Q6H PRN IVP Nausea & Vomiting 02/12/19 00:30 03/14/19 00:29 02/13/19 12:26 Pantoprazole (Protonix) 40 mg EVERY 12 HOURS IVP 02/12/19 21:00 03/14/19 20:59 02/13/19 08:35 Potassium Chloride 100 ml @ 100 mls/hr Q1H IVPB 02/13/19 11:00 02/13/19 14:59 02/13/19 12:34 Thiamine HCl 100 mg/Dextrose 56 ml @ 112 mls/hr Q24H IVPB 02/12/19 13:00 03/14/19 12:59 02/12/19 13:09 Santhosh Strickland MD Feb 13, 2019 13:40
[2019-02-13] MEDS ORDERED: traMADol 50mg tab ORAL SCH (13:51)
--- NOTE | 2019-02-13 13:53 | Nephrology Progress Note ---
Assessment/Plan Problem List: (1) Hypokalemia (2) Pancreatitis, alcoholic, acute (3) Alcohol abuse (4) Hypertension, accelerated Assessment Hypokalemia HTN OOC Pancreatitis, alcoholic, acute UTI (urinary tract infection) Alcohol abuse Plan NPO - BP control - Hydrate minitor lipase and lytes per orders Subjective ROS Limited/Unobtainable: No Constitutional: Reports: malaise Objective Objective Last 24 Hour Vital Signs Date Time Temp Pulse Resp B/P (MAP) Pulse Ox O2 Delivery O2 Flow Rate FiO2 02/13/19 09:00 Room Air 02/13/19 08:36 132/89 02/13/19 08:35 71 132/89 02/13/19 08:30 98.0 71 18 132/89 (103) 98 02/13/19 06:00 129/93 02/13/19 05:56 97.0 62 19 129/93 (105) 98 02/13/19 00:00 98.1 74 18 136/95 (109) 97 02/12/19 22:47 136/95 02/12/19 21:00 Room Air 02/12/19 20:00 98.1 72 18 145/105 (118) 98 02/12/19 16:00 97.0 78 16 157/116 (130) 97 02/12/19 15:22 157/116 02/12/19 15:21 78 157/116 Intake and Output 02/12/19 02/13/19 19:00 07:00 Intake Total 831 ml 790 ml Balance 831 ml 790 ml IV Total 831 ml 790 ml # Voids 2 Laboratory Tests 02/13/19 06:23: White Blood Count 10.6, Red Blood Count 3.97L, Hemoglobin 13.6L, Hematocrit 39.2L, Mean Corpuscular Volume 99, Mean Corpuscular Hemoglobin 34.3H, Mean Corpuscular Hemoglobin Concent 34.7, Red Cell Distribution Width 12.2, Platelet Count 221, Mean Platelet Volume 7.2, Neutrophils (%) (Auto) 67.5, Lymphocytes (% ) (Auto) 15.3L, Monocytes (%) (Auto) 10.5H, Eosinophils (%) (Auto) 6.0H, Basophils (%) (Auto) 0.7, Sodium Level 138, Potassium Level 3.1L, Chloride Level 101, Carbon Dioxide Level 31, Anion Gap 6, Blood Urea Nitrogen 11, Creatinine 1.0, Estimat Glomerular Filtration Rate > 60, Glucose Level 90, Hemoglobin A1c 5.2, Uric Acid 7.2, Calcium Level 9.5, Phosphorus Level 2.6, Magnesium Level 1.8, Total Bilirubin 0.5, Gamma Glutamyl Transpeptidase 47, Aspartate Amino Transf (AST/SGOT) 18, Alanine Aminotransferase (ALT/SGPT) 23, Alkaline Phosphatase 58, Total Creatine Kinase 35, C-Reactive Protein, Quantitative 8.9H, Pro-B-Type Natriuretic Peptide 574H, Total Protein 6.0L, Albumin 2.9L, Globulin 3.1, Albumin/Globulin Ratio 0.9L, Lipase > 2000H, Vitamin B12 Level 739, Folate 15.4 Height (Feet): 6 Height (Inches): 0.00 Weight (Pounds): 158 General Appearance: mild distress Cardiovascular: normal rate Respiratory/Chest: decreased breath sounds Abdomen: tender Javi Lyles MD Feb 13, 2019 13:53
[2019-02-13 14:39] VITALS: BP 161/110
[2019-02-13] MEDS: chlordiazePOXIDE 25mg Cap ORAL SCH ×2 (14:45→21:54)
[2019-02-13 16:00] VITALS: BP 161/115
[2019-02-13] MEDS: HYDROcodone/Acetamin 5/325 tab ORAL PRN ×2 (18:01→21:57)
--- NOTE | 2019-02-13 19:00 | NUR ---
NURSE NOTES: Patient receive potassium total 40meq as ordered today,patient resting more comfortable at this time.
[2019-02-13] MEDS: Thiamine HCl 100 MG in D5W 55 ML IVPB SCH (19:17)
--- NOTE | 2019-02-13 19:40 | NUR ---
HAND-OFF: Report given to Ramez CONTI.
[2019-02-13 20:00] VITALS: BP 143/101
--- NOTE | 2019-02-13 20:00 | NUR ---
NURSE NOTES: Received patient in bed, awake, alert and oriented x4. Not in respiratory/cardiac distress noted. Complains of severe abdominal pain. Will continue to monitor for pain. IV intact, no s/s of infiltration. Bed is on lowest position and locked. Call light within reach. Can only tolerate ice chips and small sips of clear liquid. Will continue plan of care.
--- NOTE | 2019-02-13 20:05 | NUR ---
HAND-OFF: Report given to Ramez CONTI.
--- NOTE | 2019-02-13 21:06 | General Progress Note ---
Assessment/Plan Problem List: (1) Pancreatitis, alcoholic, acute ICD Codes: K85.20 - Alcohol induced acute pancreatitis without necrosis or infection SNOMED: 357908739 Qualifiers: Qualified Codes: K85.20 - Alcohol induced acute pancreatitis without necrosis or infection (2) Alcohol abuse ICD Codes: F10.10 - Alcohol abuse, uncomplicated SNOMED: 82228271 Status: progressing, unchanged Assessment/Plan: afebrile nac etoh abuse still has abdominal pain pancreatitis is improving Subjective ROS Limited/Unobtainable: Yes Allergies: Coded Allergies: No Known Allergies (Unverified , 02/11/19) Objective Last 24 Hour Vital Signs Date Time Temp Pulse Resp B/P (MAP) Pulse Ox O2 Delivery O2 Flow Rate FiO2 02/13/19 16:00 97.9 103 20 161/115 (130) 98 02/13/19 14:46 161/110 02/13/19 14:39 99.0 94 18 161/110 (127) 98 02/13/19 09:00 Room Air 02/13/19 08:36 132/89 02/13/19 08:35 71 132/89 02/13/19 08:30 98.0 71 18 132/89 (103) 98 02/13/19 06:00 129/93 02/13/19 05:56 97.0 62 19 129/93 (105) 98 02/13/19 00:00 98.1 74 18 136/95 (109) 97 02/12/19 22:47 136/95 Intake and Output 02/12/19 02/13/19 18:59 06:59 Intake Total 831 ml 865 ml Balance 831 ml 865 ml IV Total 831 ml 865 ml # Voids 2 Laboratory Tests 02/13/19 06:23: White Blood Count 10.6, Red Blood Count 3.97L, Hemoglobin 13.6L, Hematocrit 39.2L, Mean Corpuscular Volume 99, Mean Corpuscular Hemoglobin 34.3H, Mean Corpuscular Hemoglobin Concent 34.7, Red Cell Distribution Width 12.2, Platelet Count 221, Mean Platelet Volume 7.2, Neutrophils (%) (Auto) 67.5, Lymphocytes (% ) (Auto) 15.3L, Monocytes (%) (Auto) 10.5H, Eosinophils (%) (Auto) 6.0H, Basophils (%) (Auto) 0.7, Sodium Level 138, Potassium Level 3.1L, Chloride Level 101, Carbon Dioxide Level 31, Anion Gap 6, Blood Urea Nitrogen 11, Creatinine 1.0, Estimat Glomerular Filtration Rate > 60, Glucose Level 90, Hemoglobin A1c 5.2, Uric Acid 7.2, Calcium Level 9.5, Phosphorus Level 2.6, Magnesium Level 1.8, Total Bilirubin 0.5, Gamma Glutamyl Transpeptidase 47, Aspartate Amino Transf (AST/SGOT) 18, Alanine Aminotransferase (ALT/SGPT) 23, Alkaline Phosphatase 58, Total Creatine Kinase 35, C-Reactive Protein, Quantitative 8.9H, Pro-B-Type Natriuretic Peptide 574H, Total Protein 6.0L, Albumin 2.9L, Globulin 3.1, Albumin/Globulin Ratio 0.9L, Lipase > 2000H, Vitamin B12 Level 739, Folate 15.4 Height (Feet): 6 Height (Inches): 0.00 Weight (Pounds): 158 Cardiovascular: normal peripheral pulses Respiratory/Chest: lungs clear Abdomen: soft Natalie Velázquez MD Feb 13, 2019 21:06
[2019-02-14] VITALS (7 sets, daily range): BP systolic 138–174; BP diastolic 97–118
[2019-02-14] MEDS: Morphine Sulfate 2mg/ml Inj(IV/IM USE ONLY) IVP PRN ×6 (00:16→22:11)
[2019-02-14] MEDS: HYDROcodone/Acetamin 5/325 tab ORAL PRN ×5 (02:13→20:14)
[2019-02-14] MEDS: D5 1/2NS w/KCl 40meq 1000ml 1,000 ML IV SCH ×2 (04:10→18:48)
[2019-02-14] MEDS: chlordiazePOXIDE 25mg Cap ORAL SCH ×3 (06:13→21:29)
[2019-02-14 06:45] LABS: ANION GAP 9 mmol/L (5-15); BLOOD UREA NITROGEN 9 mg/dL (7-18); CALCIUM 9.1 MG/DL (8.5-10.1); CARBON DIOXIDE 28 MMOL/L (21-32); CHLORIDE 100 MMOL/L (98-107); CREATININE 0.9 MG/DL (0.55-1.30); POTASSIUM 3.6 MMOL/L (3.5-5.1); SODIUM 137 MMOL/L (136-145)
[2019-02-14 07:02] LABS: BASOPHILS % (AUTO) 0.7 % (0.0-2.0); EOSINOPHILS % (AUTO) 4.5 % (0.0-3.0); HEMATOCRIT 42.8 % (42.0-52.0); HEMOGLOBIN 14.8 G/DL (14.2-18.0); LYMPHOCYTES % (AUTO) 11.8 % (20.0-45.0); MEAN CORPUSCULAR VOLUME 98 FL (80-99); MONOCYTES % (AUTO) 11.1 % (1.0-10.0); NEUTROPHILS % (AUTO) 71.8 % (45.0-75.0); PLATELET COUNT 220 K/UL (150-450); RED BLOOD COUNT 4.35 M/UL (4.70-6.10); RED CELL DISTRIBUTION WIDTH 11.8 % (11.6-14.8); WHITE BLOOD COUNT 10.6 K/UL (4.8-10.8)
--- NOTE | 2019-02-14 07:14 | NUR ---
HAND-OFF: Report given to GALLITO Leach.
[2019-02-14 07:20] LABS: ALANINE AMINOTRANSFERASE 22 U/L (12-78); ALBUMIN 3.1 G/DL (3.4-5.0); ALKALINE PHOSPHATASE 64 U/L (46-116); ASPARTATE AMINO TRANSFERASE 20 U/L (15-37); BILIRUBIN,DIRECT 0.1 MG/DL (0.0-0.3); BILIRUBIN,TOTAL 0.3 MG/DL (0.2-1.0); PHOSPHORUS 2.7 MG/DL (2.5-4.9)
--- NOTE | 2019-02-14 08:00 | NUR ---
NURSE NOTES: Patient is awake and alert,IV fluids infusing as ordered,patient state pain is becoming less but requesting pain medication when due.IV fluids infuising as ordered,call light within reach.
[2019-02-14] MEDS: Lisinopril 20mg tab ORAL SCH ×2 (09:07→17:53)
--- NOTE | 2019-02-14 09:57 | NUR ---
*-* INSURANCE UPDATED CLINICALS HAVE BEEN FAXED TO: [facility] NO CASTING ROOM OPERATOR ASSIGNED AT THIS TIME. PLEASE FAX THE REVIEW/CLINICAL P- [phone] F- [phone]...REVIEW/CLINICAL
--- NOTE | 2019-02-14 11:21 | GI Progress Note ---
Assessment/Plan Problems: (1) Pancreatitis, alcoholic, acute ICD Codes: K85.20 - Alcohol induced acute pancreatitis without necrosis or infection SNOMED: 782675726 Qualifiers: Qualified Codes: K85.20 - Alcohol induced acute pancreatitis without necrosis or infection (2) Alcohol abuse ICD Codes: F10.10 - Alcohol abuse, uncomplicated SNOMED: [id number] Status: progressing Status Narrative Discussed the Dr. Clark Assessment/Plan Triglyceride level of within normal limits Urine toxicity positive for marijuana Lipase level downtrending Full liquid diet, advance as tolerated Pain management Zofran as needed H2B Repeat lipase levels Patient instructed to avoid alcohol Anticipate discharge tomorrow a.m. The patient was seen and examined at bedside and all new and available data was reviewed in the patients chart. I agree with the above findings, impression and plan. (Patient seen earlier today. Signature stamp does not reflect patient encounter time.). - Nakul Clark MD Subjective Subjective Patient does complain of severe abdominal pain relieved with medication Able to tolerate clear liquid diet Objective Last 24 Hour Vital Signs Date Time Temp Pulse Resp B/P (MAP) Pulse Ox O2 Delivery O2 Flow Rate FiO2 02/14/19 09:08 96 156/115 02/14/19 09:07 156/115 02/14/19 08:45 96 156/115 (129) 02/14/19 08:00 98.4 89 20 171/113 (132) 99 02/14/19 06:13 149/97 02/14/19 04:00 98.4 82 20 149/97 (114) 99 02/14/19 00:46 98.6 02/14/19 00:00 98.4 87 16 138/99 (112) 99 02/13/19 23:41 Room Air 02/13/19 21:54 161/115 02/13/19 20:00 98.6 85 18 143/101 (115) 98 02/13/19 16:00 97.9 103 20 161/115 (130) 98 02/13/19 14:46 161/110 02/13/19 14:39 99.0 94 18 161/110 (127) 98 Intake and Output 02/13/19 02/14/19 19:00 07:00 Intake Total 375 ml 630 ml Balance 375 ml 630 ml Intake Oral 480 ml IV Total 375 ml 150 ml # Voids 4 2 Laboratory Tests Test 02/14/19 06:05 White Blood Count 10.6 K/UL (4.8-10.8) Red Blood Count 4.35 M/UL (4.70-6.10) L Hemoglobin 14.8 G/DL (14.2-18.0) Hematocrit 42.8 % (42.0-52.0) Mean Corpuscular Volume 98 FL (80-99) Mean Corpuscular Hemoglobin 34.0 PG (27.0-31.0) H Mean Corpuscular Hemoglobin Concent 34.6 G/DL (32.0-36.0) Red Cell Distribution Width 11.8 % (11.6-14.8) Platelet Count 220 K/UL (150-450) Mean Platelet Volume 7.2 FL (6.5-10.1) Neutrophils (%) (Auto) 71.8 % (45.0-75.0) Lymphocytes (%) (Auto) 11.8 % (20.0-45.0) L Monocytes (%) (Auto) 11.1 % (1.0-10.0) H Eosinophils (%) (Auto) 4.5 % (0.0-3.0) H Basophils (%) (Auto) 0.7 % (0.0-2.0) Sodium Level 137 MMOL/L (136-145) Potassium Level 3.6 MMOL/L (3.5-5.1) Chloride Level 100 MMOL/L (98-107) Carbon Dioxide Level 28 MMOL/L (21-32) Anion Gap 9 mmol/L (5-15) Blood Urea Nitrogen 9 mg/dL (7-18) Creatinine 0.9 MG/DL (0.55-1.30) Estimat Glomerular Filtration Rate > 60 mL/min (>60) Glucose Level 88 MG/DL (74-106) Uric Acid 7.3 MG/DL (2.6-7.2) H Calcium Level 9.1 MG/DL (8.5-10.1) Phosphorus Level 2.7 MG/DL (2.5-4.9) Magnesium Level 1.4 MG/DL (1.8-2.4) L Total Bilirubin 0.3 MG/DL (0.2-1.0) Direct Bilirubin 0.1 MG/DL (0.0-0.3) Aspartate Amino Transf (AST/SGOT) 20 U/L (15-37) Alanine Aminotransferase (ALT/SGPT) 22 U/L (12-78) Alkaline Phosphatase 64 U/L (46-116) Total Protein 6.6 G/DL (6.4-8.2) Albumin 3.1 G/DL (3.4-5.0) L Lipase 1226 U/L (73-393) H Height (Feet): 6 Height (Inches): 0.00 Weight (Pounds): 158 General Appearance: WD/WN, no apparent distress, alert Cardiovascular: normal rate Respiratory/Chest: normal breath sounds, no respiratory distress Abdominal Exam: normal bowel sounds, non tender, soft Extremities: normal range of motion, non-tender Jan Lopez NP Feb 14, 2019 11:21
[2019-02-14] MEDS: Pantoprazole Inj IVP SCH (11:37)
--- NOTE | 2019-02-14 12:46 | Nephrology Progress Note ---
Assessment/Plan Problem List: (1) Hypokalemia (2) Pancreatitis, alcoholic, acute (3) Alcohol abuse (4) Hypertension, accelerated Assessment Hypokalemia HTN OOC Pancreatitis, alcoholic, acute UTI (urinary tract infection) Alcohol abuse Plan clear liquids BP control - Hydrate minitor lipase and lytes per orders Subjective ROS Limited/Unobtainable: No Objective Objective Last 24 Hour Vital Signs Date Time Temp Pulse Resp B/P (MAP) Pulse Ox O2 Delivery O2 Flow Rate FiO2 02/14/19 09:08 96 156/115 02/14/19 09:07 156/115 02/14/19 08:45 96 156/115 (129) 02/14/19 08:00 98.4 89 20 171/113 (132) 99 02/14/19 06:13 149/97 02/14/19 04:00 98.4 82 20 149/97 (114) 99 02/14/19 00:46 98.6 02/14/19 00:00 98.4 87 16 138/99 (112) 99 02/13/19 23:41 Room Air 02/13/19 21:54 161/115 02/13/19 20:00 98.6 85 18 143/101 (115) 98 02/13/19 16:00 97.9 103 20 161/115 (130) 98 02/13/19 14:46 161/110 02/13/19 14:39 99.0 94 18 161/110 (127) 98 Intake and Output 02/13/19 02/14/19 19:00 07:00 Intake Total 375 ml 630 ml Balance 375 ml 630 ml Intake Oral 480 ml IV Total 375 ml 150 ml # Voids 4 2 Laboratory Tests 02/14/19 06:05: White Blood Count 10.6, Red Blood Count 4.35L, Hemoglobin 14.8, Hematocrit 42.8 , Mean Corpuscular Volume 98, Mean Corpuscular Hemoglobin 34.0H, Mean Corpuscular Hemoglobin Concent 34.6, Red Cell Distribution Width 11.8, Platelet Count 220, Mean Platelet Volume 7.2, Neutrophils (%) (Auto) 71.8, Lymphocytes (% ) (Auto) 11.8L, Monocytes (%) (Auto) 11.1H, Eosinophils (%) (Auto) 4.5H, Basophils (%) (Auto) 0.7, Sodium Level 137, Potassium Level 3.6, Chloride Level 100, Carbon Dioxide Level 28, Anion Gap 9, Blood Urea Nitrogen 9, Creatinine 0.9 , Estimat Glomerular Filtration Rate > 60, Glucose Level 88, Uric Acid 7.3H, Calcium Level 9.1, Phosphorus Level 2.7, Magnesium Level 1.4L, Total Bilirubin 0.3, Direct Bilirubin 0.1, Aspartate Amino Transf (AST/SGOT) 20, Alanine Aminotransferase (ALT/SGPT) 22, Alkaline Phosphatase 64, Total Protein 6.6, Albumin 3.1L, Lipase 1226H Height (Feet): 6 Height (Inches): 0.00 Weight (Pounds): 158 General Appearance: no apparent distress Cardiovascular: normal rate Respiratory/Chest: lungs clear Abdomen: soft, distended, tender Objective no change Javi Lyles MD Feb 14, 2019 12:46
--- NOTE | 2019-02-14 13:20 | Infectious Diseases Prog Note ---
Assessment/Plan Assessment/Plan IMPRESSION: Acute pancreatitis, likely alcoholic. hypertension nicotine dependence. RECOMMENDATION: 1. Observe off antibiotic. Subjective ROS Limited/Unobtainable: Yes Allergies: Coded Allergies: No Known Allergies (Unverified , 02/11/19) Objective Vital Signs Last 24 Hour Vital Signs Date Time Temp Pulse Resp B/P (MAP) Pulse Ox O2 Delivery O2 Flow Rate FiO2 02/14/19 09:08 96 156/115 02/14/19 09:07 156/115 02/14/19 08:45 96 156/115 (129) 02/14/19 08:00 98.4 89 20 171/113 (132) 99 02/14/19 06:13 149/97 02/14/19 04:00 98.4 82 20 149/97 (114) 99 02/14/19 00:46 98.6 02/14/19 00:00 98.4 87 16 138/99 (112) 99 02/13/19 23:41 Room Air 02/13/19 21:54 161/115 02/13/19 20:00 98.6 85 18 143/101 (115) 98 02/13/19 16:00 97.9 103 20 161/115 (130) 98 02/13/19 14:46 161/110 02/13/19 14:39 99.0 94 18 161/110 (127) 98 Height (Feet): 6 Height (Inches): 0.00 Weight (Pounds): 158 General Appearance: no acute distress HEENT: mucous membranes moist Respiratory/Chest: lungs clear Cardiovascular: normal rate Abdomen: soft, non tender Extremities: no edema Neurologic/Psychiatric: other - sleeping Microbiology Date/Time Source Procedure Growth Status 02/11/19 22:30 Urine,Clean Catch Urine Culture - Final NO GROWTH AFTER 48 HOURS Complete Laboratory Tests Test 02/14/19 06:05 White Blood Count 10.6 K/UL (4.8-10.8) Red Blood Count 4.35 M/UL (4.70-6.10) L Hemoglobin 14.8 G/DL (14.2-18.0) Hematocrit 42.8 % (42.0-52.0) Mean Corpuscular Volume 98 FL (80-99) Mean Corpuscular Hemoglobin 34.0 PG (27.0-31.0) H Mean Corpuscular Hemoglobin Concent 34.6 G/DL (32.0-36.0) Red Cell Distribution Width 11.8 % (11.6-14.8) Platelet Count 220 K/UL (150-450) Mean Platelet Volume 7.2 FL (6.5-10.1) Neutrophils (%) (Auto) 71.8 % (45.0-75.0) Lymphocytes (%) (Auto) 11.8 % (20.0-45.0) L Monocytes (%) (Auto) 11.1 % (1.0-10.0) H Eosinophils (%) (Auto) 4.5 % (0.0-3.0) H Basophils (%) (Auto) 0.7 % (0.0-2.0) Sodium Level 137 MMOL/L (136-145) Potassium Level 3.6 MMOL/L (3.5-5.1) Chloride Level 100 MMOL/L (98-107) Carbon Dioxide Level 28 MMOL/L (21-32) Anion Gap 9 mmol/L (5-15) Blood Urea Nitrogen 9 mg/dL (7-18) Creatinine 0.9 MG/DL (0.55-1.30) Estimat Glomerular Filtration Rate > 60 mL/min (>60) Glucose Level 88 MG/DL (74-106) Uric Acid 7.3 MG/DL (2.6-7.2) H Calcium Level 9.1 MG/DL (8.5-10.1) Phosphorus Level 2.7 MG/DL (2.5-4.9) Magnesium Level 1.4 MG/DL (1.8-2.4) L Total Bilirubin 0.3 MG/DL (0.2-1.0) Direct Bilirubin 0.1 MG/DL (0.0-0.3) Aspartate Amino Transf (AST/SGOT) 20 U/L (15-37) Alanine Aminotransferase (ALT/SGPT) 22 U/L (12-78) Alkaline Phosphatase 64 U/L (46-116) Total Protein 6.6 G/DL (6.4-8.2) Albumin 3.1 G/DL (3.4-5.0) L Lipase 1226 U/L (73-393) H Current Medications Medications (Trade) Dose Ordered Sig/Anurag Route PRN Reason Start Time Stop Time Status Last Admin Dose Admin Acetaminophen (Tylenol) 500 mg Q6HR PRN ORAL Mild Pain/Temp > 100.5 02/12/19 00:30 03/14/19 00:29 Acetaminophen/ Hydrocodone Bitart ([place] 5/325) 1 tab Q4H PRN ORAL Moderate Pain (Pain Scale 4-6) 02/13/19 16:00 02/20/19 15:59 02/14/19 11:37 Amlodipine Besylate (Norvasc) 10 mg DAILY ORAL 02/13/19 09:00 03/15/19 08:59 02/14/19 09:08 Chlordiazepoxide (Librium) 25 mg Q8HR ORAL 02/13/19 14:00 02/20/19 13:59 02/14/19 06:13 Clonidine HCl (Catapres tab) 0.2 mg EVERY 8 HOURS ORAL 02/14/19 14:00 03/14/19 11:59 Dextrose/ Electrolytes 1,000 ml @ 75 mls/hr [id number] IV 02/12/19 12:00 03/14/19 11:59 02/14/19 04:10 Folic Acid (Folate) 1 mg DAILY ORAL 02/13/19 09:00 03/15/19 08:59 02/14/19 09:07 Lisinopril (Prinivil) 20 mg BID ORAL 02/14/19 18:00 03/15/19 08:59 Minoxidil (Loniten) 2.5 mg Q4H PRN ORAL bp over 160 syst 02/12/19 14:00 03/14/19 13:59 Morphine Sulfate (Morphine Sulfate) 2 mg Q2HR PRN IVP For Pain 4-02/12/19 00:30 02/19/19 00:29 02/14/19 09:05 Ondansetron HCl (Zofran) 4 mg Q6H PRN IVP Nausea & Vomiting 02/12/19 00:30 03/14/19 00:29 02/14/19 08:59 Pantoprazole (Protonix) 40 mg EVERY 12 HOURS ORAL 02/14/19 21:00 03/16/19 20:59 Thiamine HCl (Vitamin B1) 100 mg DAILY ORAL 02/15/19 09:00 03/17/19 08:59 Santhosh Strickland MD Feb 14, 2019 13:20
[2019-02-14] MEDS: cloNIDine 0.2mg Tab ORAL SCH ×2 (14:09→21:29)
--- NOTE | 2019-02-14 19:00 | NUR ---
NURSE NOTES: Patient state he was able to rest,pain level is decreasing.IV fluids continue to infuse as ordered.Patient receive Magnesium 4 gm ivpb as ordered today.
--- NOTE | 2019-02-14 19:40 | NUR ---
HAND-OFF: Report given to Ramez CONTI.
--- NOTE | 2019-02-14 19:51 | General Progress Note ---
Assessment/Plan Problem List: (1) Pancreatitis, alcoholic, acute ICD Codes: K85.20 - Alcohol induced acute pancreatitis without necrosis or infection SNOMED: 300720515 Qualifiers: Qualified Codes: K85.20 - Alcohol induced acute pancreatitis without necrosis or infection (2) Alcohol abuse ICD Codes: F10.10 - Alcohol abuse, uncomplicated SNOMED: 27221076 Status: progressing Assessment/Plan: etoh abuse abdominal pain is improving pancreatitis is improving Subjective ROS Limited/Unobtainable: Yes Allergies: Coded Allergies: No Known Allergies (Unverified , 02/11/19) Objective Last 24 Hour Vital Signs Date Time Temp Pulse Resp B/P (MAP) Pulse Ox O2 Delivery O2 Flow Rate FiO2 02/14/19 17:53 172/115 02/14/19 16:00 98.5 89 18 174/118 (136) 98 02/14/19 14:09 163/112 02/14/19 12:00 98.5 92 19 155/110 (125) 99 02/14/19 09:08 96 156/115 02/14/19 09:07 156/115 02/14/19 09:00 Room Air 02/14/19 08:45 96 156/115 (129) 02/14/19 08:00 98.4 89 20 171/113 (132) 99 02/14/19 06:13 149/97 02/14/19 04:00 98.4 82 20 149/97 (114) 99 02/14/19 00:46 98.6 02/14/19 00:00 98.4 87 16 138/99 (112) 99 02/13/19 23:41 Room Air 02/13/19 21:54 161/115 02/13/19 20:00 98.6 85 18 143/101 (115) 98 Intake and Output 02/13/19 02/14/19 19:00 07:00 Intake Total 375 ml 630 ml Balance 375 ml 630 ml Intake Oral 480 ml IV Total 375 ml 150 ml # Voids 4 2 Laboratory Tests 02/14/19 06:05: White Blood Count 10.6, Red Blood Count 4.35L, Hemoglobin 14.8, Hematocrit 42.8 , Mean Corpuscular Volume 98, Mean Corpuscular Hemoglobin 34.0H, Mean Corpuscular Hemoglobin Concent 34.6, Red Cell Distribution Width 11.8, Platelet Count 220, Mean Platelet Volume 7.2, Neutrophils (%) (Auto) 71.8, Lymphocytes (% ) (Auto) 11.8L, Monocytes (%) (Auto) 11.1H, Eosinophils (%) (Auto) 4.5H, Basophils (%) (Auto) 0.7, Sodium Level 137, Potassium Level 3.6, Chloride Level 100, Carbon Dioxide Level 28, Anion Gap 9, Blood Urea Nitrogen 9, Creatinine 0.9 , Estimat Glomerular Filtration Rate > 60, Glucose Level 88, Uric Acid 7.3H, Calcium Level 9.1, Phosphorus Level 2.7, Magnesium Level 1.4L, Total Bilirubin 0.3, Direct Bilirubin 0.1, Aspartate Amino Transf (AST/SGOT) 20, Alanine Aminotransferase (ALT/SGPT) 22, Alkaline Phosphatase 64, Total Protein 6.6, Albumin 3.1L, Lipase 1226H Height (Feet): 6 Height (Inches): 0.00 Weight (Pounds): 158 Cardiovascular: normal rate Respiratory/Chest: lungs clear Abdomen: soft Natalie Velázquez MD Feb 14, 2019 19:50
[2019-02-15] VITALS: BP 170/115
[2019-02-15] MEDS: HYDROcodone/Acetamin 5/325 tab ORAL PRN ×6 (00:18→20:58)
[2019-02-15] MEDS: Morphine Sulfate 2mg/ml Inj(IV/IM USE ONLY) IVP PRN ×5 (02:19→22:31)
[2019-02-15 04:00] VITALS: BP 173/113
[2019-02-15] MEDS: D5 1/2NS w/KCl 40meq 1000ml 1,000 ML IV SCH (06:40)
[2019-02-15] MEDS: chlordiazePOXIDE 25mg Cap ORAL SCH ×3 (06:44→20:58)
[2019-02-15] MEDS: cloNIDine 0.2mg Tab ORAL SCH ×3 (06:44→20:57)
--- NOTE | 2019-02-15 07:37 | NUR ---
HAND-OFF: Report given to GALLITO Stevenson.
--- NOTE | 2019-02-15 07:38 | NUR ---
NURSE NOTES: Received patient in bed, asleep @ this time. No s/s of distress. IVF infusing @ this time. Bed is in lowest position and locked. Call light and personnel items within reach. Will continue plan of care.
[2019-02-15 07:45] LABS: BASOPHILS % (AUTO) 0.7 % (0.0-2.0); EOSINOPHILS % (AUTO) 2.8 % (0.0-3.0); HEMATOCRIT 43.3 % (42.0-52.0); HEMOGLOBIN 15.2 G/DL (14.2-18.0); LYMPHOCYTES % (AUTO) 9.7 % (20.0-45.0); MEAN CORPUSCULAR VOLUME 97 FL (80-99); MONOCYTES % (AUTO) 13.1 % (1.0-10.0); NEUTROPHILS % (AUTO) 73.7 % (45.0-75.0); PLATELET COUNT 237 K/UL (150-450); RED BLOOD COUNT 4.45 M/UL (4.70-6.10); RED CELL DISTRIBUTION WIDTH 11.8 % (11.6-14.8); WHITE BLOOD COUNT 9.4 K/UL (4.8-10.8)
[2019-02-15 08:00] VITALS: BP 159/114
[2019-02-15 08:13] LABS: ANION GAP 7 mmol/L (5-15); BLOOD UREA NITROGEN 7 mg/dL (7-18); CALCIUM 9.1 MG/DL (8.5-10.1); CARBON DIOXIDE 30 MMOL/L (21-32); CHLORIDE 101 MMOL/L (98-107); CREATININE 0.9 MG/DL (0.55-1.30); POTASSIUM 3.9 MMOL/L (3.5-5.1); SODIUM 138 MMOL/L (136-145)
[2019-02-15] MEDS: Thiamine 100mg tab ORAL SCH (08:25)
[2019-02-15] MEDS: Lisinopril 20mg tab ORAL SCH ×2 (08:30→18:34)
[2019-02-15 08:44] LABS: ALANINE AMINOTRANSFERASE 21 U/L (12-78); ALBUMIN 3.5 G/DL (3.4-5.0); ALKALINE PHOSPHATASE 67 U/L (46-116); ASPARTATE AMINO TRANSFERASE 18 U/L (15-37); BILIRUBIN,DIRECT 0.1 MG/DL (0.0-0.3); BILIRUBIN,TOTAL 0.3 MG/DL (0.2-1.0); PHOSPHORUS 2.4 MG/DL (2.5-4.9)
--- NOTE | 2019-02-15 08:57 | General Progress Note ---
Assessment/Plan Problem List: (1) Alcohol abuse ICD Codes: F10.10 - Alcohol abuse, uncomplicated SNOMED: 45000976 (2) Pancreatitis, alcoholic, acute ICD Codes: K85.20 - Alcohol induced acute pancreatitis without necrosis or infection SNOMED: 557398827 Qualifiers: Qualified Codes: K85.20 - Alcohol induced acute pancreatitis without necrosis or infection Status: stable, progressing Assessment/Plan: npo ivf pain control cbc bmp am Subjective Constitutional: Reports: weakness Allergies: Coded Allergies: No Known Allergies (Unverified , 02/11/19) All Systems: reviewed and negative except above Subjective sl abd pain Objective Last 24 Hour Vital Signs Date Time Temp Pulse Resp B/P (MAP) Pulse Ox O2 Delivery O2 Flow Rate FiO2 02/15/19 08:30 159/114 02/15/19 08:30 90 159/114 02/15/19 08:00 98.2 90 21 159/114 (129) 100 02/15/19 06:44 173/113 02/15/19 04:00 97.8 90 18 173/113 (133) 100 02/15/19 02:19 170/115 02/15/19 00:00 97.8 90 18 170/115 (133) 100 02/14/19 23:02 Room Air 02/14/19 22:41 98.5 02/14/19 21:29 172/115 02/14/19 20:44 98.5 02/14/19 20:00 98.6 95 18 163/112 (129) 100 02/14/19 17:53 172/115 02/14/19 16:00 98.5 89 18 174/118 (136) 98 02/14/19 14:09 163/112 02/14/19 12:00 98.5 92 19 155/110 (125) 99 02/14/19 09:08 96 156/115 02/14/19 09:07 156/115 02/14/19 09:00 Room Air Intake and Output 02/14/19 02/15/19 19:00 07:00 Intake Total 1975 ml 675 ml Balance 1975 ml 675 ml Intake Oral 1000 ml IV Total 975 ml 675 ml # Voids 6 3 Laboratory Tests 02/15/19 07:00: White Blood Count 9.4, Red Blood Count 4.45L, Hemoglobin 15.2, Hematocrit 43.3, Mean Corpuscular Volume 97, Mean Corpuscular Hemoglobin 34.1H, Mean Corpuscular Hemoglobin Concent 35.1, Red Cell Distribution Width 11.8, Platelet Count 237, Mean Platelet Volume 6.4L, Neutrophils (%) (Auto) 73.7, Lymphocytes (%) (Auto) 9.7L, Monocytes (%) (Auto) 13.1H, Eosinophils (%) (Auto) 2.8, Basophils (%) ( Auto) 0.7, Sodium Level 138, Potassium Level 3.9, Chloride Level 101, Carbon Dioxide Level 30, Anion Gap 7, Blood Urea Nitrogen 7, Creatinine 0.9, Estimat Glomerular Filtration Rate > 60, Glucose Level 114H, Uric Acid 6.6, Calcium Level 9.1, Phosphorus Level 2.4L, Magnesium Level 1.8, Total Bilirubin 0.3, Direct Bilirubin 0.1, Aspartate Amino Transf (AST/SGOT) 18, Alanine Aminotransferase (ALT/SGPT) 21, Alkaline Phosphatase 67, Total Protein 6.7, Albumin 3.5, Lipase 1054H Height (Feet): 6 Height (Inches): 0.00 Weight (Pounds): 158 General Appearance: alert EENT: normal ENT inspection Neck: normal alignment Cardiovascular: normal peripheral pulses, normal rate, regular rhythm Respiratory/Chest: chest wall non-tender, lungs clear, normal breath sounds Abdomen: normal bowel sounds, non tender, soft Extremities: normal inspection Edema: no edema noted Arm (L), no edema noted Arm (R), no edema noted Leg (L), no edema noted Leg (R), no edema noted Pedal (L), no edema noted Pedal (R), no edema noted Generalized Neurologic: responsive, motor weakness Skin: normal pigmentation, warm/dry Tom Siddiqui DO Feb 15, 2019 08:57
--- NOTE | 2019-02-15 10:09 | NUR ---
NURSE NOTES: Patient was seen by Dr. Clark and Rn relayed that patient vomited around 6am per night time nanny endorsement.RN received order to d/c previous IVF and change to D51/2 NS with 20 MEQ @125cc/hr. RN verified the order and Per Dr. Clark, patient is not yet ready to be discharged. CT of abdomen/pelvis w/wo contrast was ordered by Dr. Clark. Patient has no episodes of vomiting so far. Will continue to monitor.
[2019-02-15] MEDS ORDERED: Isovue-300 100ml vial INJ PRN (10:15)
--- NOTE | 2019-02-15 10:15 | NUR ---
NURSE NOTES: Patient wants to consent to the CT after he talks to his girl friend and will RN know when he is ready. Patient is not allergic to iodine or shellfish. CT dept aware.
[2019-02-15 12:00] VITALS: BP 155/104
--- NOTE | 2019-02-15 12:30 | NUR ---
CASE MANAGEMENT: REVIEW SI: PANCREATITIS . ALCOHOL ABUSE T 97.7 HR 84 RR 21 BP 173/113 SAT 98% ROOM AIR LIPASE 1054 IS: D5 1/2 NS w/KCl 20mEq IVF @125ML/HR LIBRIUM PO Q8HR THIAMINE PO QD MED/SURG STATUS DCP: PATIENT IS FROM HOME PLAN: CT ABD
[2019-02-15] MEDS: D5 1/2NS w/KCl 20mEq 1,000 ML IV SCH ×2 (12:32→18:46)
--- NOTE | 2019-02-15 12:35 | Physician Query ---
THIS FORM IS A PERMANENT PART OF THE MEDICAL RECORD ------ PLEASE COMPLETE DOCUMENT BEFORE SIGNING Dear Dr. De La Rosa, A Date: 02/15/2019 School Principal/CDS Name: Jana Mcfarland [employer] Principal / CDS Phone #[phone] Exercise your independent professional judgment when responding to the query. Question asked do not imply a particular answer is desired/expected Clinical Documentation States: "Hypertension" OOC documented in progress notes Clinical Findings Show: Systolic BP ___170 , ____173 , 159____ Diastolic BP 115____, 113__, ___114 Treatment: Antihypertensives: Norvasc 10 mg po daily, clonidine 0.2 mg po prn q4hrs, minoxidil 2.5 mg po Other: Please Clarify the specific type of hypertension: [] Hypertensive Urgency [] Hypertensive Emergency [] Essential Hypertension [] Other: Condition Present on Admission: [] Yes [] No []Clinically Undeterminable Please also document in your Progress Notes and/or Discharge Summary and indicate if the condition was present on admission. MTDD
--- NOTE | 2019-02-15 12:40 | NUR ---
NURSE NOTES: Patient consented to CT scan w/wo contrast. RN let CT dept. made aware. C/O Ti.
--- NOTE | 2019-02-15 12:56 | Nephrology Progress Note ---
Assessment/Plan Problem List: (1) Hypokalemia (2) Pancreatitis, alcoholic, acute (3) Alcohol abuse (4) Hypertension, accelerated Assessment Hypokalemia HTN OOC Pancreatitis, alcoholic, acute UTI (urinary tract infection) Alcohol abuse Plan full liquids BP control - Hydrate minitor lipase and lytes per orders Subjective ROS Limited/Unobtainable: No Constitutional: Reports: malaise Objective Objective Last 24 Hour Vital Signs Date Time Temp Pulse Resp B/P (MAP) Pulse Ox O2 Delivery O2 Flow Rate FiO2 02/15/19 12:00 97.7 84 21 155/104 (121) 98 02/15/19 09:00 Room Air 02/15/19 08:30 159/114 02/15/19 08:30 90 159/114 02/15/19 08:00 98.2 90 21 159/114 (129) 100 02/15/19 06:44 173/113 02/15/19 04:00 97.8 90 18 173/113 (133) 100 02/15/19 02:19 170/115 02/15/19 00:00 97.8 90 18 170/115 (133) 100 02/14/19 23:02 Room Air 02/14/19 22:41 98.5 02/14/19 21:29 172/115 02/14/19 20:44 98.5 02/14/19 20:00 98.6 95 18 163/112 (129) 100 02/14/19 17:53 172/115 02/14/19 16:00 98.5 89 18 174/118 (136) 98 02/14/19 14:09 163/112 Intake and Output 02/14/19 02/15/19 19:00 07:00 Intake Total 1975 ml 675 ml Balance 1975 ml 675 ml Intake Oral 1000 ml IV Total 975 ml 675 ml # Voids 6 3 Laboratory Tests 02/15/19 07:00: White Blood Count 9.4, Red Blood Count 4.45L, Hemoglobin 15.2, Hematocrit 43.3, Mean Corpuscular Volume 97, Mean Corpuscular Hemoglobin 34.1H, Mean Corpuscular Hemoglobin Concent 35.1, Red Cell Distribution Width 11.8, Platelet Count 237, Mean Platelet Volume 6.4L, Neutrophils (%) (Auto) 73.7, Lymphocytes (%) (Auto) 9.7L, Monocytes (%) (Auto) 13.1H, Eosinophils (%) (Auto) 2.8, Basophils (%) ( Auto) 0.7, Sodium Level 138, Potassium Level 3.9, Chloride Level 101, Carbon Dioxide Level 30, Anion Gap 7, Blood Urea Nitrogen 7, Creatinine 0.9, Estimat Glomerular Filtration Rate > 60, Glucose Level 114H, Uric Acid 6.6, Calcium Level 9.1, Phosphorus Level 2.4L, Magnesium Level 1.8, Total Bilirubin 0.3, Direct Bilirubin 0.1, Aspartate Amino Transf (AST/SGOT) 18, Alanine Aminotransferase (ALT/SGPT) 21, Alkaline Phosphatase 67, Total Protein 6.7, Albumin 3.5, Lipase 1054H Height (Feet): 6 Height (Inches): 0.00 Weight (Pounds): 158 General Appearance: no apparent distress Objective no change Javi Lyles MD Feb 15, 2019 12:56
[2019-02-15 16:00] VITALS: BP 157/106
--- NOTE | 2019-02-15 17:02 | Diagnostic Imaging Report ---
EXAM: CT Abdomen and Pelvis Without And With Intravenous Contrast CLINICAL HISTORY: ABD PAIN TECHNIQUE: Axial computed tomography images of the abdomen and pelvis without contrast material in one or both body regions followed by contrast material and further imaging in one or both body regions. CTDI is 11.50 mGy and DLP is 635 mGy-cm. One or more of the following dose reduction techniques were used: automated exposure control, adjustment of the mA and/or kV according to patient size, use of iterative reconstruction technique. Coronal and sagittal reformatted images were created and reviewed. COMPARISON: No relevant prior studies available. FINDINGS: Lung bases: Unremarkable. No mass. No consolidation. ABDOMEN: Liver: Unremarkable. No mass. Gallbladder and bile ducts: Mild layering gallbladder sludge without acute cholecystitis. No ductal dilation. Pancreas: Unremarkable. No mass. No ductal dilation. Spleen: Unremarkable. No splenomegaly. Adrenals: Unremarkable. No mass. Kidneys and ureters: Bilateral numerous renal hypodensities which are statistically likely represent benign cysts, but which demonstrate attenuation slightly greater than that expected for simple cysts. Right measures up to 1.4 cm in diameter; left measures up to 0.7 cm in diameter. Punctate nonobstructing left nephroliths, 0.1-0.2 cm axial image 33. Stomach and bowel: Diffuse liquid small bowel and proximal colonic contents are nonspecific, and could be incidental. In the proper context, this could also represent an infectious or inflammatory enteritis or enterocolitis. Correlate clinically. No obstruction. PELVIS: Appendix: No findings to suggest acute appendicitis. Bladder: Decompressed urinary bladder with circumferential wall thickening, likely secondary to nondistention. Correlate to exclude cystitis. No stones. Reproductive: Unremarkable as visualized. ABDOMEN and PELVIS: Intraperitoneal space: Unremarkable. No free air. No significant fluid collection. Bones/joints: No acute fracture. No dislocation. Soft tissues: Unremarkable. Vasculature: Unremarkable. No abdominal aortic aneurysm. Lymph nodes: Scattered mesenteric lymph nodes are probably incidental and/or reactive no pathologic by size lymphadenopathy seen. IMPRESSION: 1. Diffuse liquid small bowel and proximal colonic contents are nonspecific, and could be incidental. In the proper context, this could also represent an infectious or inflammatory enteritis or enterocolitis. Correlate clinically. 2. Otherwise no acute abnormality to account for patient presentation. 3. Recommend MRI abdomen without and with intravenous contrast to further characterize probably benign not definitively characterized renal hypodensities described above. 4. Nonobstructing punctate left nephrolith. 5. Mild layering gallbladder sludge without acute cholecystitis. 6. Decompressed urinary bladder with circumferential wall thickening, likely secondary to nondistention. Correlate to exclude cystitis.
--- NOTE | 2019-02-15 17:05 | NUR ---
NURSE NOTES: Patient came back from CT in stable condition.
--- NOTE | 2019-02-15 18:30 | NUR ---
NURSE NOTES: Patine denies any nausea or vomiting.
--- NOTE | 2019-02-15 19:41 | NUR ---
HAND-OFF: Report given to Jeanie.
[2019-02-15 20:00] VITALS: BP 149/111
--- NOTE | 2019-02-15 20:00 | NUR ---
NURSE NOTES: PT IN BED. ON RA, NO SOB, NO ACUTE DISTRESS. L WRIST IV INTACT, PATENT RUNNING FLUIDS. BED IN LOWEST POSITION, LOCKED, ALARMS ON. CALL LIGHT IN REACH.
[2019-02-16] VITALS: BP 131/101
[2019-02-16] MEDS: HYDROcodone/Acetamin 5/325 tab ORAL PRN ×3 (01:22→10:20)
[2019-02-16] MEDS: D5 1/2NS w/KCl 20mEq 1,000 ML IV SCH ×2 (02:10→10:21)
[2019-02-16] MEDS: Morphine Sulfate 2mg/ml Inj(IV/IM USE ONLY) IVP PRN ×2 (03:52→08:10)
[2019-02-16 04:00] VITALS: BP 148/107
[2019-02-16] MEDS: cloNIDine 0.2mg Tab ORAL SCH (05:08)
[2019-02-16] MEDS: chlordiazePOXIDE 25mg Cap ORAL SCH (05:09)
--- NOTE | 2019-02-16 07:21 | NUR ---
HAND-OFF: Report given to SCOT SPENCE RN.
--- NOTE | 2019-02-16 07:23 | NUR ---
NURSE NOTES: Received patient in bed, awake, alert and oriented x4. Not in respiratory/cardiac distress noted. Patient stated that he did not vomit over night. He complains of mild pain on abdomen.Will continue to monitor for pain. IV intact, no s/s of infiltration running IVF. Bed is on lowest position and locked. Call light within reach.Will continue plan of care.
[2019-02-16 08:00] VITALS: BP 125/106
--- NOTE | 2019-02-16 08:07 | General Progress Note ---
Assessment/Plan Problem List: (1) Hypertension, accelerated ICD Codes: I10 - Essential (primary) hypertension SNOMED: 92214297 (2) Pancreatitis, alcoholic, acute ICD Codes: K85.20 - Alcohol induced acute pancreatitis without necrosis or infection SNOMED: [id number] Qualifiers: Qualified Codes: K85.20 - Alcohol induced acute pancreatitis without necrosis or infection (3) Alcohol abuse ICD Codes: F10.10 - Alcohol abuse, uncomplicated SNOMED: 57053271 Status: stable, progressing Status Narrative CT reviewed no CT evidence of pancreatitis on full liquid diet ok to dc GI stand point Subjective ROS Limited/Unobtainable: Yes Allergies: Coded Allergies: No Known Allergies (Unverified , 02/11/19) Objective Last 24 Hour Vital Signs Date Time Temp Pulse Resp B/P (MAP) Pulse Ox O2 Delivery O2 Flow Rate FiO2 02/16/19 08:00 97.9 106 18 125/106 (112) 100 02/16/19 05:08 148/107 02/16/19 04:00 97.8 71 18 148/107 (121) 100 02/16/19 00:00 97.9 69 18 131/101 (111) 98 02/15/19 21:00 Room Air 02/15/19 20:57 149/111 02/15/19 20:00 98.5 95 19 149/111 (124) 95 02/15/19 18:34 152/113 02/15/19 16:00 98.2 88 18 157/106 (123) 98 02/15/19 15:48 154/111 02/15/19 12:00 97.7 84 21 155/104 (121) 98 02/15/19 09:00 Room Air 02/15/19 08:30 159/114 02/15/19 08:30 90 159/114 Intake and Output 02/15/19 02/16/19 19:00 07:00 Intake Total 1575 ml 625 ml Balance 1575 ml 625 ml IV Total 925 ml 625 ml Other 650 ml # Voids 4 Laboratory Tests 02/16/19 07:30: White Blood Count [Pending], Red Blood Count [Pending], Hemoglobin [Pending], Hematocrit [Pending], Mean Corpuscular Volume [Pending], Mean Corpuscular Hemoglobin [Pending], Mean Corpuscular Hemoglobin Concent [Pending], Red Cell Distribution Width [Pending], Platelet Count [Pending], Mean Platelet Volume [ Pending], Neutrophils (%) (Auto) [Pending], Lymphocytes (%) (Auto) [Pending], Monocytes (%) (Auto) [Pending], Eosinophils (%) (Auto) [Pending], Basophils (%) (Auto) [Pending], Sodium Level [Pending], Potassium Level [Pending], Chloride Level [Pending], Carbon Dioxide Level [Pending], Blood Urea Nitrogen [Pending], Creatinine [Pending], Estimat Glomerular Filtration Rate [Pending], Glucose Level [Pending], Calcium Level [Pending], Total Bilirubin [Pending], Aspartate Amino Transf (AST/SGOT) [Pending], Alanine Aminotransferase (ALT/SGPT) [Pending] , Alkaline Phosphatase [Pending], Total Protein [Pending], Albumin [Pending], Globulin [Pending], Amylase Level [Pending], Lipase [Pending] Height (Feet): 6 Height (Inches): 0.00 Weight (Pounds): 158 General Appearance: alert EENT: normal ENT inspection Neck: supple Cardiovascular: normal rate Respiratory/Chest: decreased breath sounds Abdomen: normal bowel sounds, non tender, soft Extremities: normal range of motion, non-tender Nakul Clark MD Feb 16, 2019 08:07
[2019-02-16] MEDS: Thiamine 100mg tab ORAL SCH (08:10)
[2019-02-16 08:11] LABS: BASOPHILS % (AUTO) 0.9 % (0.0-2.0); EOSINOPHILS % (AUTO) 5.1 % (0.0-3.0); HEMATOCRIT 42.2 % (42.0-52.0); HEMOGLOBIN 14.8 G/DL (14.2-18.0); LYMPHOCYTES % (AUTO) 23.7 % (20.0-45.0); MEAN CORPUSCULAR VOLUME 97 FL (80-99); MONOCYTES % (AUTO) 15.1 % (1.0-10.0); NEUTROPHILS % (AUTO) 55.2 % (45.0-75.0); PLATELET COUNT 245 K/UL (150-450); RED BLOOD COUNT 4.36 M/UL (4.70-6.10); RED CELL DISTRIBUTION WIDTH 11.7 % (11.6-14.8); WHITE BLOOD COUNT 6.9 K/UL (4.8-10.8)
[2019-02-16 08:19] LABS: AMYLASE 39 U/L (25-115)
[2019-02-16 08:29] LABS: ALANINE AMINOTRANSFERASE 21 U/L (12-78); ALBUMIN 3.1 G/DL (3.4-5.0); ALBUMIN/GLOBULIN RATIO 0.9 (1.0-2.7); ALKALINE PHOSPHATASE 59 U/L (46-116); ANION GAP 8 mmol/L (5-15); ASPARTATE AMINO TRANSFERASE 16 U/L (15-37); BILIRUBIN,TOTAL 0.3 MG/DL (0.2-1.0); BLOOD UREA NITROGEN 5 mg/dL (7-18); CALCIUM 8.7 MG/DL (8.5-10.1); CARBON DIOXIDE 27 MMOL/L (21-32); CHLORIDE 102 MMOL/L (98-107); CREATININE 0.7 MG/DL (0.55-1.30); POTASSIUM 3.5 MMOL/L (3.5-5.1); SODIUM 137 MMOL/L (136-145)
[2019-02-16] MEDS: Lisinopril 20mg tab ORAL SCH (09:00)
--- NOTE | 2019-02-16 09:00 | NUR ---
NURSE NOTES: Patient asks for prescription for pain medication if he is going to be released today since he has no pain medication @ home. Will follow up.
--- NOTE | 2019-02-16 09:24 | General Progress Note ---
Assessment/Plan Problem List: (1) Alcohol abuse ICD Codes: F10.10 - Alcohol abuse, uncomplicated SNOMED: 19166959 (2) Pancreatitis, alcoholic, acute ICD Codes: K85.20 - Alcohol induced acute pancreatitis without necrosis or infection SNOMED: [id number] Qualifiers: Qualified Codes: K85.20 - Alcohol induced acute pancreatitis without necrosis or infection Status: stable, progressing Assessment/Plan: npo ivf pain control cbc bmp am Subjective Constitutional: Reports: weakness Allergies: Coded Allergies: No Known Allergies (Unverified , 02/11/19) All Systems: reviewed and negative except above Subjective sl abd pain Objective Last 24 Hour Vital Signs Date Time Temp Pulse Resp B/P (MAP) Pulse Ox O2 Delivery O2 Flow Rate FiO2 02/16/19 09:00 Room Air 02/16/19 09:00 125/106 02/16/19 08:09 106 125/106 02/16/19 08:00 97.9 106 18 125/106 (112) 100 02/16/19 05:08 148/107 02/16/19 04:00 97.8 71 18 148/107 (121) 100 02/16/19 00:00 97.9 69 18 131/101 (111) 98 02/15/19 21:00 Room Air 02/15/19 20:57 149/111 02/15/19 20:00 98.5 95 19 149/111 (124) 95 02/15/19 18:34 152/113 02/15/19 16:00 98.2 88 18 157/106 (123) 98 02/15/19 15:48 154/111 02/15/19 12:00 97.7 84 21 155/104 (121) 98 Intake and Output 02/15/19 02/16/19 19:00 07:00 Intake Total 1575 ml 625 ml Balance 1575 ml 625 ml IV Total 925 ml 625 ml Other 650 ml # Voids 4 Laboratory Tests 02/16/19 07:30: White Blood Count 6.9, Red Blood Count 4.36L, Hemoglobin 14.8, Hematocrit 42.2, Mean Corpuscular Volume 97, Mean Corpuscular Hemoglobin 34.0H, Mean Corpuscular Hemoglobin Concent 35.1, Red Cell Distribution Width 11.7, Platelet Count 245, Mean Platelet Volume 6.4L, Neutrophils (%) (Auto) 55.2, Lymphocytes (%) (Auto) 23.7, Monocytes (%) (Auto) 15.1H, Eosinophils (%) (Auto) 5.1H, Basophils (%) ( Auto) 0.9, Sodium Level 137, Potassium Level 3.5, Chloride Level 102, Carbon Dioxide Level 27, Anion Gap 8, Blood Urea Nitrogen 5L, Creatinine 0.7, Estimat Glomerular Filtration Rate > 60, Glucose Level 113H, Calcium Level 8.7, Total Bilirubin 0.3, Aspartate Amino Transf (AST/SGOT) 16, Alanine Aminotransferase ( ALT/SGPT) 21, Alkaline Phosphatase 59, Total Protein 6.5, Albumin 3.1L, Globulin 3.4, Albumin/Globulin Ratio 0.9L, Amylase Level 39, Lipase 603H Height (Feet): 6 Height (Inches): 0.00 Weight (Pounds): 158 General Appearance: lethargic EENT: normal ENT inspection Neck: normal alignment Cardiovascular: normal peripheral pulses, normal rate, regular rhythm Respiratory/Chest: chest wall non-tender, lungs clear, normal breath sounds Abdomen: normal bowel sounds, non tender, soft Extremities: normal inspection Edema: no edema noted Arm (L), no edema noted Arm (R), no edema noted Leg (L), no edema noted Leg (R), no edema noted Pedal (L), no edema noted Pedal (R), no edema noted Generalized Neurologic: motor weakness Skin: normal pigmentation, warm/dry Tom Siddiqui DO Feb 16, 2019 09:24
--- NOTE | 2019-02-16 09:26 | NUR ---
NURSE NOTES: Patient was seen by Dr. Amber montemayor. Per Dr. Clark since CT is negative. Patient is clear for discharge and get prescription from the primary doctor. Patient also was seen by Dr. Siddiqui who is covering Dr. Velázquez. Per Dr. Siddiqui, patient can be discharge tomorrow and ask prescription from Dr. Velázquez.
--- NOTE | 2019-02-16 10:33 | NUR ---
NURSE NOTES: Patient changed his mind and he wants to being discharged but he needs a prescription for pain medication. Rn left a message to Dr. Velázquez.Awaiting for return call.
[2019-02-16 11:30] VITALS: BP 124/82
--- NOTE | 2019-02-16 11:35 | NUR ---
NURSE NOTES: Patient was discharged to home accompanied by his girl friend in a private car in stable condition. Prior to discharge, patient denied nausea, vomiting, or pain. Patient tolerated well to his food. Instructed patient about diet for pancreatitis. Per patient, he can not wait for the doctor and he will try over the counter pain medication. discharge instruction was given to the patient. Patient will follow up with his primary doctor soon and he knows when to seek medical attention. RN given information about HTN, pancreatitis and low-fat diet and constipation. IV and ID was removed and no s/s of infection. Pressure dressing applied. Patient requested for medical records and filled out the form and place the original form in the chart. All belongings accounted for. No missing items. RN went over with the patient's belongings with the patient. Skin intact, staff escorted patient to the car.
--- NOTE | 2019-02-17 09:46 | NUR ---
*-* INSURANCE UPDATED CLINICALS AND DISCAHRGE SUMMARY HAVE BEEN FAXED TO: COUNTS INCLUDE 234 BEDS AT THE [facility] NO RN HEMODIALYSIS CHARGE ASSIGNED AT THIS TIME. PLEASE FAX THE REVIEW/CLINICAL P- [phone] F- [phone]...REVIEW/CLINICAL
--- NOTE | 2019-02-18 08:22 | Discharge Summary ---
Discharge Summary Discharge Summary _ DATE OF ADMISSION: 02/11/2019 DATE OF DISCHARGE: 02/16/2019 DISCHARGED BY: Dr Velázquez REASON FOR ADMISSION: 28 years old male with past medical history of alcohol abuse, tobacco use, presented with chief complaint of upper quadrant abdominal pain since the morning. Pain described as intermittent , severe, 8 out of 10. Patient reported nausea without vomiting. Patient denied fever, chills. Patient denied diarrhea. Patient admitted to daily drinking. Upon evaluation in the emergency department vital signs revealed elevated blood pressure. Laboratory work-up revealed leukocytosis WBC 15.4, stable hemoglobin and hematocrit. Chemistry was significant for lipase of over 2000. BUN 17 creatinine 1.4. Potassium 3.1. Urinalysis revealed evidence of pyuria.. Patient started on IV fluids , provided with analgesia, and was admitted for further management. CONSULTANTS: ID specialist Dr. Strickland GI specialist Dr. Clark kayak maker Dr. Lyles [facility]RSE: Patient admitted to medical surgical floor. Patient was kept n.p.o. and started on the IV fluids. Lipase and amylase were closely monitored. Antihypertensive regimen initiated and further titrated as per kayak maker. Patient started on folic acid and thiamine. Librium was on board as needed . Pain management was addressed. Symptomatic care provided. Lipid panel revealed stable triglycerides. Lipase was downtrending. Urine toxicology screen was positive for opiates and marijuana. Patient slowly started on full liquid diet and was advanced as tolerated. Antiemetic provided as needed. GI prophylaxis provided. CT scan of the abdomen done on 02/15 , revealed no evidence of pancreatitis. Prior to discharge , lipase down to 603, amylase 39. Stable bilirubin and LFT. Infectious disease specialist followed. Urine cultures are negative. Infectious disease doctor recommended to observe patient off antibiotics. Leukocytosis resolved, patient was afebrile. Community Cultural Development Officer closely followed. Antihypertensive medication regimen was further optimized as per kayak maker and included calcium channel mark, ARVIN inhibitor and clonidine. Blood pressure eventually stabilized. Renal parameters and electrolytes were closely monitored Patient demonstrated low potassium and low magnesium levels. Both, , potassium and magnesium , were replaced and stable prior to discharge. Renal parameters were closely monitored. Creatinine from initial 1.4 down to 0.7 . Patient was able to tolerate diet. Leukocytosis resolved. Pain controlled. Patient was counseled on abstinence from alcohol and smoking cessation. Patient declined nicotine patch. Patient was stable for discharge home. FINAL DIAGNOSES: Acute alcoholic pancreatitis Electrolyte imbalance : hypokalemia , hypomagnesemia Accelerated hypertension due to hypertensive urgency, present on admission Alcohol abuse Nicotine dependency DISCHARGE MEDICATIONS: See Medication Reconciliation list. DISCHARGE INSTRUCTIONS: Patient was discharged home Follow up with primary care provider in one week. I have been assigned to dictate discharge summary for this account. I was not involved in the patient's management. Rosario Lemus NP Feb 18, 2019 08:22
== END 2019-02-16 11:35 | disposition home or self-care (01) | DRG 282 ==
LOC: EMR 23:12 → 4E 23:14
DX: K85.20 Alcohol induced acute pancreatitis without necrosis or infection (principal); E83.42 Hypomagnesemia; E86.0 Dehydration; E87.6 Hypokalemia; I16.0 Hypertensive urgency; I10 Essential (primary) hypertension; F17.290 Nicotine dependence, other tobacco product, uncomplicated; K21.9 Gastro-esophageal reflux disease without esophagitis; F10.10 Alcohol abuse, uncomplicated; F17.200 Nicotine dependence, unspecified, uncomplicated
CPT/HCPCS: 36415; 74177; 80048; 80053; 80061; 80076; 80307; 81003; 82150; 82550; 82607; 82746; 82977; 83036; 83690; 83735; 83880; 84100; 84443; 84550; 85025; 86140; 87086; 96361; 96365; 96375; 99284; J2405; J8499